=== PATIENT | male | born 1945 | race Caucasian/White ===

== ENCOUNTER 2016-10-14 08:58 | Outpatient (CLI) | payer OTHER ==
[2016-07-22 15:17] VITALS: BMI 32.8
[2016-10-14 09:17] LABS: HEMATOCRIT 42.1 % (42.0-52.0); HEMOGLOBIN 13.1 g/dl (14.0-18.0); MEAN CORPUSCULAR HEMOGLOBIN 27.3 pg (27.0-31.0); MEAN CORPUSCULAR HGB CONC 31.1 (31.8-35.4); MEAN CORPUSCULAR VOLUME 87.9 fl (80.0-94.0); RED BLOOD COUNT 4.79 10^6/ul (4.70-6.10); WHITE BLOOD COUNT 4.93 K/ul (4.2-10.2)
[2016-10-14 09:34] LABS: ANION GAP 11.4; CALCIUM 9.9 mg/dL (8.2-10.2); CREATININE 1.21 mg/dL (0.60-1.10); POTASSIUM 4.4 mmol/L (3.5-5.1)
[2016-10-15 07:19] LABS: URINE CREATININE 72.2 mg/dL (Not Estab.)
[2016-10-15 16:29] LABS: URINE MALB/CR RATIO 302.4 mg/g creat (0.0-30.0)
== END 2016-10-14 08:59 | disposition home or self-care (01) ==
LOC: LAB 08:58
PROVIDERS: ATTEND Internal Medicine Nephrology
DX: N18.2 Chronic kidney disease, stage 2 (mild) (principal)
CPT/HCPCS: 36415; 80048; 82043; 83970; 85025; 85027

== ENCOUNTER 2017-02-03 05:11 | Outpatient (CLI) ==
[2016-07-22 15:17] VITALS: BMI 32.8
== END 2017-02-03 05:12 | disposition home or self-care (01) ==
LOC: AMBL 05:11
PROVIDERS: ATTEND Family Medicine
DX: S09.90XA Unspecified injury of head, initial encounter (principal); S00.81XA Abrasion of other part of head, initial encounter; G47.00 Insomnia, unspecified; W19.XXXA Unspecified fall, initial encounter

== ENCOUNTER 2017-02-13 13:35 | Emergency (ER) | payer OTHER ==
[2017-02-13 13:40] VITALS: BP 135/78; TEMP 98; BMI 35.4
--- NOTE | 2017-02-13 14:42 | ED.PDOC ---
General ED Provider: Dr. CHEVY THOMPSON Chief Complaint: Wound Check Stated Complaint: wound check right lower leg Time Seen by Physician: 13:37 (apolniar at beside at all times pt stated hsi wound is not as bad as before ) Mode of Arrival: Wheelchair Information Source: Patient Exam Limitations: No limitations Primary Care Provider: EULALIO FERRERA Nursing and Triage Documentation Reviewed and Agree: Yes (no skin break down evidence of chrnic venous stasis( chronic)see photos, ) Musculoskeletal Complaint Exam - Lower Extremity Complaint/Exam Location of Pain: Reports: Right, Leg (see photos these channges are all chronic pt said his leg looks better now as before) Onset/Duration: chronic Symptoms Are: Still present Onset of Pain: Reports: Weeks Able to Bear Weight: Yes Associated Signs and Symptoms: Reports: Swelling, Redness. Denies: Bruising, Fever, Weakness, Numbness, Tingling DVT Risk Factors: Reports: Recent bedrest Septic Arthritis Risk Factors: Reports: Extremes of age Related Surgical History: Reports: None Lower Extremity Findings: Present: Swelling (venous stasis chronic changes see photos ) Katelyn's Sign Present: No Review of Systems - Review Of Systems Constitutional: Reports: No symptoms Eyes: Reports: No symptoms Ears, Nose, Mouth, Throat: Reports: No symptoms Respiratory: Reports: No symptoms Cardiac: Reports: No symptoms GI: Reports: No symptoms : Reports: No symptoms Musculoskeletal: Reports: No symptoms Skin: Reports: Rash (RIGHT LOWER LEG) Neurological: Reports: No symptoms Endocrine: Reports: No symptoms Hematologic/Lymphatic: Reports: No symptoms All Other Systems: Reviewed and Negative Past Medical History - Past Medical History Endocrine: Reports: DM 2, Hypothyroid Cardiovascular: Reports: CAD, [place], Hypertension, CHF, A-Fib Respiratory: Reports: COPD, Asthma Hematological: Reports: Anemia Gastrointestinal: Reports: GERD Genitourinary: Reports: CKD Neuro/Psych: Reports: Depression Musculoskeletal: Reports: Back Pain, Joint Pain Cancer: Reports: Unknown - Surgical History General Surgical History: Reports: Appendectomy, Cholecystectomy, Orthopedic (- neck surg--). Denies: CABG (cardiac stents) - Family History Family History: Reports: Unknown - Social History Smoking Status: Current some day smoker Hx Substance Use: No Alcohol Screening: Occasionally Physical Exam - Physical Exam Appearance: Well-appearing, No pain distress, Well-nourished Eyes: EDDIE, EOMI, Conjunctiva clear ENT: Ears normal, Nose normal, Oropharynx normal Respiratory: Airway patent, Breath sounds clear, Breath sounds equal, Respirations nonlabored Cardiovascular: RRR, Pulses normal, No rub, No murmur GI/: Soft, Nontender, No masses, Bowel sounds normal, No Organomegaly Musculoskeletal: Normal strength, ROM intact, No edema, No calf tenderness Skin: Warm, Dry (chronic venous stais changes ) Neurological: Sensation intact, Motor intact, Reflexes intact, Cranial nerves intact, Alert, Oriented Psychiatric: Affect appropriate, Mood appropriate Physician Notification - Case Discussed Physician Notified: PMD Time of Notification: 14:47 (LOWER LEG DISCUSSED ) Critical Care Note - Critical Care Note Total Time (mins): 0 Course - Course Vital Signs: Temp Pulse Resp BP Pulse Ox 02/13/17 13:37 98.0 F 66 20 135/78 92 L Departure - Departure Time of Disposition: 14:46 (nurse present at all times see photos) Disposition: HOME SELF-CARE Discharge Problem: Edema of lower extremity Instructions: Leg Edema (ED), Cellulitis (ED) Condition: Good Pt referred to PMD for follow-up: Yes (spoke to pmd will see pt in office asked me to tell pt to call office [place]) Allergies/Adverse Reactions: Allergies aspirin Adverse Reaction (Verified 02/13/17 13:40) Iodinated Contrast Media - Oral and [Iodinated Contrast Media - IV Dye] Adverse Reaction (Verified 02/13/17 13:40) moxifloxacin Adverse Reaction (Verified 02/13/17 13:40) Home Medications: Ambulatory Orders Atorvastatin Calcium [Lipitor] 80 mg PO DAILY 04/26/13 Gabapentin [Neurontin] 100 mg PO BEDTIME 04/26/13 Levothyroxine Sodium [Synthroid] 350 mcg PO DAILY 04/26/13 Hydrocodone Bit/Acetaminophen [[place] 5-325] 1 - 2 tab PO Q6HR PRN #12 tablet 03/30 Bumetanide [Bumex] 1 - 2 tab PO QDAC 02/13/17 Clopidogrel Bisulfate [Plavix] 75 mg PO DAILY 02/13/17 Colchicine 0.6 mg PO DAILY 02/13/17 Ipratropium/Albuterol Sulfate [Combivent Respimat Inhal [place]] 1 spray IH QID Tamsulosin HCl [Flomax] 0.4 mg PO DAILY 02/13/17
== END 2017-02-13 15:04 | disposition home or self-care (01) ==
LOC: ED 13:35
DX: R60.0 Localized edema (principal); I87.8 Other specified disorders of veins; E11.9 Type 2 diabetes mellitus without complications; F17.210 Nicotine dependence, cigarettes, uncomplicated; Z79.899 Other long term (current) drug therapy
CPT/HCPCS: 99282

== ENCOUNTER 2017-03-13 13:18 | Emergency (ER) ==
[2017-03-13 13:26] VITALS: BP 138/79; TEMP 98.7; BMI 33.7
[2017-03-13 14:06] LABS: BASOPHILS # (AUTO) 0.1 K/uL (0-0.2); BASOPHILS % (AUTO) 1.5 % (0.0-3.0); EOSINOPHILS # (AUTO) 0.3 K/ul (0.0-0.7); EOSINOPHILS % (AUTO) 7.4 % (0.0-7.0); HEMATOCRIT 37.2 % (42.0-52.0); HEMOGLOBIN 11.9 g/dl (14.0-18.0); IMMATURE GRANULOCYTE % (AUTO) 0.3 % (0.0-5.0); LYMPHOCYTES # (AUTO) 0.7 K/uL (0.60-3.4); LYMPHOCYTES % (AUTO) 17.3 (10.0-50.0); MEAN CORPUSCULAR HEMOGLOBIN 29.3 pg (27.0-31.0); MEAN CORPUSCULAR VOLUME 91.6 fl (80.0-94.0); MONOCYTES # (AUTO) 0.4 K/uL (0.4-2.0); MONOCYTES % (AUTO) 9.9 (0-10); NEUTROPHILS # (AUTO) 2.5 K/ul (2.0-6.9); NEUTROPHILS % (AUTO) 63.6; PLATELET COUNT 78 10^3/uL (140-440); RED BLOOD COUNT 4.06 10^6/ul (4.70-6.10); WHITE BLOOD COUNT 3.94 K/ul (4.2-10.2)
[2017-03-13 14:31] LABS: ALBUMIN/GLOBULIN RATIO 0.81; ANION GAP 11.1; BILIRUBIN,TOTAL 0.64 mg/dL (0.00-1.20); BUN/CREATININE RATIO 14.28; CALCIUM 8.8 mg/dL (8.2-10.2); CREATININE 1.26 mg/dL (0.60-1.10); POTASSIUM 4.1 mmol/L (3.5-5.1); TOTAL PROTEIN 6.7 g/dL (5.8-8.1)
--- NOTE | 2017-03-13 14:41 | ED.PDOC ---
General ED Provider: Dr. CHEVY THOMPSON Chief Complaint: Extremity Swelling/Pain Stated Complaint: lower leg pain edema bilateral Time Seen by Physician: 13:20 (see photos) Mode of Arrival: Walk-In Information Source: Patient Exam Limitations: No limitations Primary Care Provider: EULALIO FERRERA Nursing and Triage Documentation Reviewed and Agree: Yes (chronic issue seen with staff) Musculoskeletal Complaint Exam - Lower Extremity Complaint/Exam Location of Pain: Reports: Right, Left, Leg Mechanism of Injury: Reports: No known trauma Onset/Duration: chronic Symptoms Are: Still present Onset of Pain: Reports: Days Initial Severity: Moderate Current Severity: Moderate (please see photos) Location: Reports: Discrete (lower legs ) Character: Reports: Aching Alleviating: Reports: Rest, Position Aggravating: Reports: Movement Able to Bear Weight: Yes Associated Signs and Symptoms: Reports: Swelling Related History: Reports: Similar episode DVT Risk Factors: Reports: Recent bedrest Septic Arthritis Risk Factors: Reports: Extremes of age Related Surgical History: Reports: None Katelyn's Sign Present: No Differential Diagnoses: Arthritis, Strain, Sprain, Other (cellulitis) Review of Systems - Review Of Systems Constitutional: Reports: No symptoms Eyes: Reports: No symptoms Ears, Nose, Mouth, Throat: Reports: No symptoms Respiratory: Reports: No symptoms Cardiac: Reports: No symptoms GI: Reports: No symptoms : Reports: No symptoms Musculoskeletal: Reports: Other (leg pains see photos) Skin: Reports: No symptoms Neurological: Reports: No symptoms Endocrine: Reports: No symptoms Hematologic/Lymphatic: Reports: No symptoms All Other Systems: Reviewed and Negative Past Medical History - Past Medical History Endocrine: Reports: DM 2, Hypothyroid Cardiovascular: Reports: CAD, [place], Hypertension, CHF, A-Fib Respiratory: Reports: COPD, Asthma Hematological: Reports: Anemia Gastrointestinal: Reports: GERD Genitourinary: Reports: CKD Neuro/Psych: Reports: Depression Musculoskeletal: Reports: Back Pain, Joint Pain Cancer: Reports: Unknown - Surgical History General Surgical History: Reports: Appendectomy, Cholecystectomy, Orthopedic (- neck surg--). Denies: CABG (cardiac stents) - Family History Family History: Reports: Unknown - Social History Smoking Status: Current every day smoker, Light tobacco smoker Hx Substance Use: No Alcohol Screening: Occasionally Physical Exam - Physical Exam Appearance: Well-appearing, No pain distress, Well-nourished Eyes: EDDIE, EOMI, Conjunctiva clear ENT: Ears normal, Nose normal, Oropharynx normal Respiratory: Airway patent, Breath sounds clear, Breath sounds equal, Respirations nonlabored Cardiovascular: RRR, Pulses normal, No rub, No murmur GI/: Soft, Nontender, No masses, Bowel sounds normal, No Organomegaly Musculoskeletal: Limited ROM, Edema (2 plus ) Skin: Warm, Dry (cellulitic eveidence of chronic venous stasis see photos ) Neurological: Sensation intact, Motor intact, Reflexes intact, Cranial nerves intact, Alert, Oriented Psychiatric: Affect appropriate, Mood appropriate Critical Care Note - Critical Care Note Total Time (mins): 0 Course - Course Hematology/Chemistry: 03/13/17 13:50 03/13/17 13:50 Orders, Labs, Meds: Lab Review 03/13/17 13:50 WBC 3.94 L RBC 4.06 L Hgb 11.9 L Hct 37.2 L MCV 91.6 MCH 29.3 MCHC 32.0 RDW Coeff of Alen 15.6 H Plt Count 78 L Immature Gran % (Auto) 0.3 Neut % (Auto) 63.6 Lymph % (Auto) 17.3 [place] % (Auto) 9.9 Eos % (Auto) 7.4 H Baso % (Auto) 1.5 Immature Gran # (Auto) 0.0 Neut # 2.5 Lymph # 0.7 [place] # 0.4 Eos # 0.3 Baso # 0.1 Sodium 140 Potassium 4.1 Chloride 103 Carbon Dioxide 30 Anion Gap 11.1 BUN 18 Creatinine 1.26 H Estimated GFR (MDRD) 57.00 BUN/Creatinine Ratio 14.28 Glucose 97 Calcium 8.8 Total Bilirubin 0.64 AST 35 ALT 48 Alkaline Phosphatase 107 Total Protein 6.7 Albumin 3.0 L Globulin 3.7 Albumin/Globulin Ratio 0.81 Orders Category Date Time Status EKG-(ED ONLY) Stat CARDIO 03/13/17 13:48 Completed CBC W/ AUTO DIFF Stat LAB 03/13/17 13:50 Completed COMPREHENSIVE METABOLIC PANEL Stat LAB 03/13/17 13:50 Completed U/S VENOUS SCAN LEON LEGS Stat RADS 03/13/17 13:52 Completed Vital Signs: Temp Pulse Resp BP Pulse Ox 03/13/17 13:18 98.7 F 63 20 138/79 92 L Departure - Departure Time of Disposition: 15:30 (with may in the room i explained labs and ultra sound requested pt to see PMD WING) Disposition: HOME SELF-CARE Discharge Problem: Bilateral lower leg cellulitis Instructions: Cellulitis (ED) Condition: Good Pt referred to PMD for follow-up: No Additional Instructions: Please call your Family Physician as soon as possible to schedule a follow-up appointment. Allergies/Adverse Reactions: Allergies aspirin Adverse Reaction (Verified 03/13/17 13:27) Iodinated Contrast- Oral and IV Dye [Iodinated Contrast Media - IV Dye] Adverse Reaction (Verified 03/13/17 13:27) moxifloxacin Adverse Reaction (Verified 03/13/17 13:27) Home Medications: Ambulatory Orders Atorvastatin Calcium [Lipitor] 80 mg PO DAILY 04/26/13 Gabapentin [Neurontin] 100 mg PO BEDTIME 04/26/13 Levothyroxine Sodium [Synthroid] 350 mcg PO DAILY 04/26/13 Hydrocodone Bit/Acetaminophen [[place] 5-325] 1 - 2 tab PO Q6HR PRN #12 tablet 03/30 Bumetanide [Bumex] 1 - 2 tab PO QDAC 02/13/17 Clopidogrel Bisulfate [Plavix] 75 mg PO DAILY 02/13/17 Colchicine 0.6 mg PO DAILY 02/13/17 Ipratropium/Albuterol Sulfate [Combivent Respimat Inhal [place]] 1 spray IH QID Tamsulosin HCl [Flomax] 0.4 mg PO DAILY 02/13/17 Clindamycin HCl 300 mg PO TID 03/13/17 Disposition Discussed With: Patient
--- NOTE | 2017-03-13 15:03 | US ---
EXAM: Ultrasound venous Doppler right and left lower extermity HISTORY: Pain, tenderness, swelling, red thick skin COMPARISON: 08/07/2011 TECHNIQUE: Venous duplex ultrasound of the right and left lower extremity was performed using color , cyr-scale, and Doppler flow imaging. FINDINGS: There is normal color flow and compression of the right and left common femoral, greater saphenous, profunda femoral, femoral, popliteal, peroneal, and (left) posterior tibial veins without evidence of intraluminal thrombus. Right posterior tibial veins and left anterior tibial veins not visualized. Bilateral subcutaneous edema. IMPRESSION: No right or left lower extremity deep venous thrombosis at the visualized levels.
== END 2017-03-13 15:51 | disposition home or self-care (01) ==
LOC: ED 13:18
DX: L03.116 Cellulitis of left lower limb (principal); L03.115 Cellulitis of right lower limb; M79.605 Pain in left leg; M79.604 Pain in right leg; E11.9 Type 2 diabetes mellitus without complications; E03.9 Hypothyroidism, unspecified; I25.10 Atherosclerotic heart disease of native coronary artery without angina pectoris; I13.0 Hypertensive heart and chronic kidney disease with heart failure and stage 1 through stage 4 chronic kidney disease, or unspecified chronic kidney disease; E11.22 Type 2 diabetes mellitus with diabetic chronic kidney disease; N18.9 Chronic kidney disease, unspecified; I50.9 Heart failure, unspecified; D63.1 Anemia in chronic kidney disease; I25.2 Old myocardial infarction; F17.210 Nicotine dependence, cigarettes, uncomplicated; Z79.899 Other long term (current) drug therapy
CPT/HCPCS: 36415; 80053; 85025; 93005; 93010; 99283

== ENCOUNTER 2017-04-08 13:26 | Outpatient (CLI) | END 2017-04-08 13:27 | LOC: AMBL 13:26 | PROVIDERS: ATTEND Internal Medicine | DX: R50.9 Fever, unspecified (principal); I10 Essential (primary) hypertension; R00.0 Tachycardia, unspecified; R06.2 Wheezing ==

== ENCOUNTER 2017-05-13 16:04 | Emergency (ER) | payer OTHER ==
[2017-05-13 16:05] VITALS: BMI 33.7
[2017-05-13 16:11] VITALS: BP 109/71; TEMP 99.4
--- NOTE | 2017-05-13 16:20 | ED.PDOC ---
General ED Provider: Dr. KOFI XAVIER JR Chief Complaint: Hip Pain/Injury Stated Complaint: Pain rt hip/ lateral rt thigh. Fell while getting out of chair. Tripped over the cat et fell into TV. Able to stand, but with pain. Took Ibuprofen at 1330. [ End ] 99.4 69 20 94 109/71 6/10. htn dm thy anem chol mi chf afib copd asth gerd kd depr anx arth cad. cardiac stents Time Seen by Physician: 16:15 Mode of Arrival: Wheelchair Information Source: Patient Exam Limitations: No limitations Nursing and Triage Documentation Reviewed and Agree: No Review of Systems - Review Of Systems Constitutional: Reports: Malaise, Weakness Eyes: Reports: No symptoms Ears, Nose, Mouth, Throat: Reports: No symptoms Respiratory: Reports: No symptoms Cardiac: Reports: Edema, Lightheadedness GI: Reports: No symptoms : Reports: No symptoms Musculoskeletal: Reports: Joint pain, Muscle pain Skin: Reports: Lesions (bilateral leg swelling with open lesions left >right) Neurological: Reports: No symptoms Endocrine: Reports: No symptoms Hematologic/Lymphatic: Reports: No symptoms All Other Systems: Other Past Medical History - Past Medical History Endocrine: Reports: DM 2, Hypothyroid, Dyslipidemia Cardiovascular: Reports: CAD, [place], Hypertension, CHF, A-Fib Respiratory: Reports: COPD, Asthma Hematological: Reports: Anemia Gastrointestinal: Reports: GERD Genitourinary: Reports: CKD Neuro/Psych: Reports: Anxiety, Depression Musculoskeletal: Reports: Arthritis, Back Pain, Joint Pain Cancer: Reports: Unknown - Surgical History General Surgical History: Reports: Appendectomy, Cholecystectomy, Stent, Orthopedic (-neck surg--). Denies: CABG (cardiac stents) - Family History Family History: Reports: Unknown - Social History Smoking Status: Current every day smoker, Light tobacco smoker Hx Substance Use: No Alcohol Screening: Occasionally Physical Exam - Physical Exam Appearance: Ill-appearing Pain Distress: Moderate Neck: Supple Respiratory: Airway patent Musculoskeletal: ROM intact, No calf tenderness, Edema Skin: Warm Neurological: Alert, Oriented Psychiatric: Affect appropriate Critical Care Note - Critical Care Note Total Time (mins): 0 Course - Course Orders, Labs, Meds: Orders Category Date Time Status FEMUR, RIGHT 2 VIEWS Stat RADS 05/13/17 16:17 Completed Vital Signs: Temp Pulse Resp BP Pulse Ox 05/13/17 16:06 99.4 F 69 20 109/71 94 L Departure - Departure Time of Disposition: 17:32 Disposition: HOME SELF-CARE Discharge Problem: Hip pain, Contusion Instructions: Hip Contusion (ED) Condition: Good Pt referred to PMD for follow-up: Yes Allergies/Adverse Reactions: Allergies aspirin Adverse Reaction (Verified 03/13/17 13:27) Iodinated Contrast- Oral and IV Dye [Iodinated Contrast Media - IV Dye] Adverse Reaction (Verified 03/13/17 13:27) moxifloxacin Adverse Reaction (Verified 03/13/17 13:27) Home Medications: Ambulatory Orders Atorvastatin Calcium [Lipitor] 80 mg PO DAILY 04/26/13 Gabapentin [Neurontin] 100 mg PO BID 04/26/13 Levothyroxine Sodium [Synthroid] 350 mcg PO DAILY 04/26/13 Hydrocodone Bit/Acetaminophen [[place] 5-325] 1 - 2 tab PO Q6HR PRN #12 tablet 03/30 Bumetanide [Bumex] 1 tab PO QDAC 02/13/17 Clopidogrel Bisulfate [Plavix] 75 mg PO DAILY 02/13/17 Colchicine 0.6 mg PO DAILY 02/13/17 Ipratropium/Albuterol Sulfate [Combivent Respimat Inhal [place]] 1 spray IH QID Tamsulosin HCl [Flomax] 0.4 mg PO DAILY 02/13/17 Bumetanide 0.5 mg PO BEDTIME 05/13/17
--- NOTE | 2017-05-13 17:02 | DI ---
EXAM: RIGHT FEMUR, 2 VIEWS HISTORY: Fall, femoral, pain. FINDINGS: Some comparison is made to right knee dated 04/12/2013. Redemonstration of of bony fragm ent of the superior patella which is consistent with a chronic avulsion fracture fragment versus calcific tendinosis. There is no acute fracture. No joint effusion. A few vascular calcific ations are present. IMPRESSION: No acute fracture.
[2017-05-13] MEDS ORDERED: DEMEROL 50 MG/ML SYRINGE IM STA (17:46)
[2017-05-13] MEDS ORDERED: ZOFRAN 4 MG/2 ML IM STA (17:46)
== END 2017-05-13 18:03 | disposition home or self-care (01) ==
LOC: ED 16:04
DX: M25.551 Pain in right hip (principal); S70.01XA Contusion of right hip, initial encounter; W01.0XXA Fall on same level from slipping, tripping and stumbling without subsequent striking against object, initial encounter; F17.210 Nicotine dependence, cigarettes, uncomplicated
CPT/HCPCS: 99283

== ENCOUNTER 2017-08-22 15:00 | Outpatient (CLI) | END 2017-08-22 15:01 | disposition short-term general hospital (02) | LOC: AMBL 15:00 | PROVIDERS: ATTEND Internal Medicine | DX: R06.02 Shortness of breath (principal); R06.2 Wheezing; R05 Cough; R60.0 Localized edema; J44.9 Chronic obstructive pulmonary disease, unspecified; I50.9 Heart failure, unspecified; I48.91 Unspecified atrial fibrillation ==

== ENCOUNTER 2017-10-15 16:17 | Outpatient (CLI) | payer OTHER ==
--- NOTE | 2017-10-16 08:33 | DI ---
EXAM: Two views of the chest. History: Congestive heart failure. Comparison: Chest radiograph 04/26/2013 Findings: Heart size is upper limits of normal. Bilateral interstitial lung infiltrates. No pleura l fluid and no pneumothorax. No acute osseous abnormalities. Postsurgical changes of the cervical s pine. Impression: Bilateral interstitial lung infiltrates could represent edema or pneumonia.
== END 2017-10-15 16:18 | disposition home or self-care (01) ==
LOC: LAB 16:17
PROVIDERS: ATTEND Family Medicine
DX: I25.118 Atherosclerotic heart disease of native coronary artery with other forms of angina pectoris (principal); I50.22 Chronic systolic (congestive) heart failure; R06.02 Shortness of breath; R60.9 Edema, unspecified; E03.9 Hypothyroidism, unspecified; I48.2 Chronic atrial fibrillation; E11.9 Type 2 diabetes mellitus without complications
CPT/HCPCS: 36415; 80053; 83036; 83880; 84436; 84443; 84479; 85025

== ENCOUNTER 2018-04-01 07:50 | Outpatient (CLI) | payer OTHER | END 2018-04-01 07:51 | disposition home or self-care (01) | LOC: WOUND 07:50 | PROVIDERS: ATTEND Nurse Practitioner Family | DX: E11.622 Type 2 diabetes mellitus with other skin ulcer (principal); I25.10 Atherosclerotic heart disease of native coronary artery without angina pectoris; I10 Essential (primary) hypertension | CPT/HCPCS: 99202 ==

== ENCOUNTER 2018-04-08 10:01 | Outpatient (CLI) | payer OTHER | END 2018-04-08 10:02 | disposition home or self-care (01) | LOC: WOUND 10:01 | PROVIDERS: ATTEND Nurse Practitioner Family | DX: I87.313 Chronic venous hypertension (idiopathic) with ulcer of bilateral lower extremity (principal); L97.222 Non-pressure chronic ulcer of left calf with fat layer exposed; L97.312 Non-pressure chronic ulcer of right ankle with fat layer exposed; L97.822 Non-pressure chronic ulcer of other part of left lower leg with fat layer exposed; I10 Essential (primary) hypertension; I25.10 Atherosclerotic heart disease of native coronary artery without angina pectoris | CPT/HCPCS: 99212; 99213 ==

== ENCOUNTER 2018-04-15 09:57 | Outpatient (CLI) | END 2018-04-15 09:58 | disposition home or self-care (01) | LOC: WOUND 09:57 | PROVIDERS: ATTEND Nurse Practitioner Family | DX: I87.313 Chronic venous hypertension (idiopathic) with ulcer of bilateral lower extremity (principal); L97.222 Non-pressure chronic ulcer of left calf with fat layer exposed; L97.312 Non-pressure chronic ulcer of right ankle with fat layer exposed; L97.822 Non-pressure chronic ulcer of other part of left lower leg with fat layer exposed; I10 Essential (primary) hypertension; I25.10 Atherosclerotic heart disease of native coronary artery without angina pectoris; L97.321 Non-pressure chronic ulcer of left ankle limited to breakdown of skin; L97.811 Non-pressure chronic ulcer of other part of right lower leg limited to breakdown of skin | CPT/HCPCS: 99212; 99213 ==

== ENCOUNTER 2018-04-22 11:03 | Outpatient (CLI) | payer OTHER | END 2018-04-22 11:04 | disposition home or self-care (01) | LOC: WOUND 11:03 | PROVIDERS: ATTEND Nurse Practitioner Family | DX: I87.313 Chronic venous hypertension (idiopathic) with ulcer of bilateral lower extremity (principal); L97.222 Non-pressure chronic ulcer of left calf with fat layer exposed; L97.822 Non-pressure chronic ulcer of other part of left lower leg with fat layer exposed; L97.811 Non-pressure chronic ulcer of other part of right lower leg limited to breakdown of skin; I10 Essential (primary) hypertension; I25.10 Atherosclerotic heart disease of native coronary artery without angina pectoris ==

== ENCOUNTER 2018-04-29 09:37 | Outpatient (CLI) | payer OTHER | END 2018-04-29 09:38 | disposition home or self-care (01) | LOC: WOUND 09:37 | PROVIDERS: ATTEND Nurse Practitioner Family | DX: I87.313 Chronic venous hypertension (idiopathic) with ulcer of bilateral lower extremity (principal); L97.222 Non-pressure chronic ulcer of left calf with fat layer exposed; L97.822 Non-pressure chronic ulcer of other part of left lower leg with fat layer exposed; L97.811 Non-pressure chronic ulcer of other part of right lower leg limited to breakdown of skin; I10 Essential (primary) hypertension; I25.10 Atherosclerotic heart disease of native coronary artery without angina pectoris ==

== ENCOUNTER 2018-05-13 09:53 | Outpatient (CLI) | END 2018-05-13 09:54 | disposition home or self-care (01) | LOC: WOUND 09:53 | PROVIDERS: ATTEND Nurse Practitioner Family | DX: I87.313 Chronic venous hypertension (idiopathic) with ulcer of bilateral lower extremity (principal); L97.222 Non-pressure chronic ulcer of left calf with fat layer exposed; L97.822 Non-pressure chronic ulcer of other part of left lower leg with fat layer exposed; I10 Essential (primary) hypertension; I25.10 Atherosclerotic heart disease of native coronary artery without angina pectoris ==

== ENCOUNTER 2018-05-17 11:39 | Inpatient (IN) ==
[2018-05-17] MEDS ORDERED: SODIUM CHLORIDE 500 ML IV STA (11:55)
--- NOTE | 2018-05-17 12:22 | CT ---
EXAM: CT of the head without contrast History: Head trauma. Technique: Multiplanar CT images through the head were obtained without the administration of IV con trast Findings: The visualized paranasal sinuses and mastoid air cells are clear in general. No acute miguel varial abnormalities. Partially visualized postsurgical changes of the cervical spine. Intracranially the ventricular and cisternal spaces are normal in size, shape and configuration for a patient of this age. No dominant mass or midline shift. No hydrocephalous. No acute intracranial hemorrhage or abnormal extraaxial fluid collections. Impression: No acute intracranial process
[2018-05-17] MEDS ORDERED: VANCOMYCIN 1 GM in SODIUM CHLORIDE 250 ML IV STA (12:34)
[2018-05-17] MEDS ORDERED: SODIUM CHLORIDE 1,000 ML IV STA (12:39)
--- NOTE | 2018-05-17 12:39 | CT ---
EXAM: CT of the cervical spine without contrast History: Head and neck trauma. Technique: Multiplanar CT images through the cervical spine were obtained without the administration of IV contrast Findings: Ground-glass infiltrates seen within the visualized upper lungs. Atherosclerotic vascular calcifications. No acute fracture or subluxation of the cervical spine. Grossly intact spinal fusio n hardware. Vertebral body at C4 is not well seen and is most likely postsurgical in nature. bony spi nal canal is not significantly compromised. Multilevel bilateral bony neural foraminal narrowing sec ondary to uncovertebral and facet hypertrophy. Impression: No acute osseous abnormality of the cervical spine. Grossly intact hardware.
--- NOTE | 2018-05-17 12:44 | CT ---
EXAM: CT of the chest without contrast History: Chest trauma, unresponsive Comparison: CT abdomen pelvis 05/17/2018, chest radiograph 10/15/2017 Technique: Multiplanar CT images through the thorax were obtained without the administration of IV c ontrast Findings: Heart is enlarged. Coronary calcifications. No thoracic aortic aneurysm. No axillary ly mphadenopathy. A few borderline enlarged mediastinal lymph nodes. Evaluation for hilar lymph nodes is limited due to the lack of contrast administration. There is interlobular septal thickening and b ilateral ground-glass infiltrates. More focal bibasilar consolidation. No pneumothorax. No suspici ous lung masses or lung nodules. For details in the upper abdomen, please see dedicated CT abdomen pelvis done on the same day. Posts urgical changes of the cervical spine. No acute osseous abnormalities. A few subacute right-sided r ib fractures with callous formation involving the right lateral eighth and ninth ribs. Motion artifa ct through the sternum and ribs limits evaluation for acute fractures. Impression: 1. Cardiomegaly with interstitial pulmonary edema. 2. Bibasilar pneumonia. 3. Coronary artery disease
--- NOTE | 2018-05-17 12:47 | CT ---
EXAM: CT of the abdomen pelvis without contrast History: Abdominal and pelvic trauma. Comparison: Chest CT 05/17/2018 Technique: Multiplanar CT images through the abdomen pelvis were obtained without the administration of IV contrast Findings: Motion artifact limits evaluation. Bibasilar lung infiltrates. Evaluation for fracture is limited due to the motion artifact but no obvious fractures are identified. Degenerative changes of the spine. Bilateral gynecomastia. Status post cholecystectomy. No focal liver or splenic lesions. No renal stones and no hydronephros is. A few mildly air distended loops of small bowel seen within the anterior central abdomen. Scatter ed colonic stool. Catheter seen within the bladder. Atherosclerotic vascular calcifications. There is some atrophy of the pancreas but no olga peripancreatic inflammation. Adrenal glands are unrema rkable. Impression: 1. Mildly distended loops of small bowel within the anterior abdomen probably related to ileus or en teritis. Early developing partial small bowel obstruction is not excluded and recommend followup wit h abdominal plain film in 24 hours. 2. Dietrich catheter within the bladder. 3. Bibasilar pneumonia.
[2018-05-17] MEDS ORDERED: D5%-NS-KCL 20 MEQ/L IV SOL 1,000 ML IV STA (13:47)
[2018-05-17] MEDS ORDERED: POTASSIUM CHLORIDE 20 MEQ VIAL IV ONE (13:53)
--- NOTE | 2018-05-17 13:56 | ED.PDOC ---
General ED Provider: Dr. YOMI PRATER-ER Chief Complaint: Altered Mental Status Stated Complaint: brought in by ems for change in mental status Time Seen by Physician: 11:45 Mode of Arrival: Ambulance Information Source: EMT Exam Limitations: No limitations Primary Care Provider: EULALIO FERRERA Nursing and Triage Documentation Reviewed and Agree: Yes Does patient meet sepsis criteria?: Yes If yes, has appropriate treatment been initiated?: Yes System Inflammatory Response Syndrome: Temp 96.8F or Lower, Acutely Altered Mental Status Sepsis Protocol: For patient's 13 years and over: Temp is 96.8 and below OR 101 and greater Pulse >90 BPM Resp >20/minute Acutely Altered Mental Status Are patient's symptoms suggestive of a new infection, such as: -Pneumonia -Skin, Soft Tissue -Endocarditis -UTI -Bone, Joint Infection -Implantable Device -Acute Abdominal Infection -Wound Infection -Meningitis -Blood Stream Catheter Infection -Unknown Neurological Complaint Exam - Altered Mental Status Complaint/Exam Current Mental Status: Unresponsiveness Last Known Well: unknown Onset: Gradual Symptoms Are: Still present Timing: Constant Initial Severity: Mild Current Severity: Severe Eye Deviation Present: No Character: Reports: Responsiveness, Lethargy Aggravating: Reports: Unknown Alleviating: Reports: None Associated Signs and Symptoms: Reports: Weakness Related History: Reports: Similar episode Related Surgical History: Reports: None Carotid Bruit Present: No Meningeal Signs Positive: No Focal Weakness: Present: None Focal Sensory Loss: Present: None Differential Diagnoses: Sepsis Review of Systems - Review Of Systems Constitutional: Reports: Malaise, Weakness, Loss of appetite Eyes: Reports: No symptoms Ears, Nose, Mouth, Throat: Reports: No symptoms Respiratory: Reports: No symptoms Cardiac: Reports: No symptoms GI: Reports: No symptoms : Reports: No symptoms Musculoskeletal: Reports: No symptoms Skin: Reports: No symptoms Neurological: Reports: Cognitive dysfunction, Weakness Endocrine: Reports: No symptoms Hematologic/Lymphatic: Reports: No symptoms All Other Systems: Reviewed and Negative Past Medical History - Past Medical History Previously Healthy: No Endocrine: Reports: DM 2, Hypothyroid, Dyslipidemia Cardiovascular: Reports: CAD, [place], Hypertension, CHF, A-Fib Respiratory: Reports: COPD, Asthma Hematological: Reports: Anemia Gastrointestinal: Reports: GERD Genitourinary: Reports: CKD Neuro/Psych: Reports: Anxiety, Depression Musculoskeletal: Reports: Arthritis, Back Pain, Joint Pain Cancer: Reports: Unknown - Surgical History General Surgical History: Reports: Appendectomy, Cholecystectomy, Stent, Orthopedic (-neck surg--). Denies: CABG (cardiac stents) - Family History Family History: Reports: Unknown - Social History Smoking Status: Current every day smoker, Light tobacco smoker Hx Substance Use: No Alcohol Screening: Occasionally Lives: Alone - Immunizations Tetanus Shot up to Date: No Physical Exam - Physical Exam Appearance: Ill-appearing Ill-appearing: Moderate Eyes: EDDIE, EOMI, Conjunctiva clear ENT: Ears normal, Nose normal, Oropharynx normal Neck: Supple Respiratory: Airway patent Cardiovascular: RRR, Pulses normal, No rub, No murmur GI/: Soft, Nontender, No masses, Bowel sounds normal, No Organomegaly Musculoskeletal: Normal strength, ROM intact, No edema, No calf tenderness Skin: Warm, Dry, Normal color Neurological: Sensation intact, Motor intact, Reflexes intact, Cranial nerves intact, Disoriented Psychiatric: Affect appropriate Interpretation - Radiology Interpretation Radiology Interpretation By: Radiologist Radiology Results: Positive Exam Interpreted: CT Scan - EKG Interpretation Time of EKG #1: 13:57 Rate: Normal Rhythm: Sinus Ectopy: None [place]: NL ST Segment: Normal Re-Evaluation - Re-Evaluation Time of Re-Evaluation: 13:57 Status: Improved Vital Signs Stable: Yes Pain Level: 0 Appearance: NAD Lungs: Clear Skin: Warm and Dry CV: RRR Physician Notification - Case Discussed Physician Notified: dr alcala Time of Notification: 13:58 Critical Care Note - Critical Care Note Total Time (mins): 45 Course - Course Hematology/Chemistry: 05/17/18 11:52 05/17/18 11:52 Orders, Labs, Meds: Lab Review 05/17/18 05/17/18 05/17/18 11:41 11:52 11:52 WBC 25.43 H RBC 4.50 L Hgb 13.1 L Hct 39.2 L MCV 87.1 MCH 29.1 MCHC 33.4 RDW Coeff of Alen 15.8 H Plt Count 169 Immature Gran % (Auto) 1.3 Neut % (Auto) 84.9 Lymph % (Auto) 9.8 L Dickinson % (Auto) 3.7 Eos % (Auto) 0.1 Baso % (Auto) 0.2 Immature Gran # (Auto) 0.3 Neut # (Auto) 21.6 H Lymph # (Auto) 2.5 Dickinson # (Auto) 0.9 Eos # (Auto) 0.0 Baso # (Auto) 0.1 Puncture Site Lrad O2 Saturation 90.0 L ABG pH 7.124 L* ABG pCO2 71.9 H ABG pO2 81.0 L ABG HCO3 23.6 ABG Total CO2 26 ABG Base Excess -6 L Mann Test + O2 Delivery Device Nrb Oxygen Liter Flow 15.00 FiO2 % 100.0 Sodium 132 L Potassium 2.9 L Chloride 94 L Carbon Dioxide 25 Anion Gap 15.9 BUN 17 Creatinine 1.30 H Estimated GFR (MDRD) 54.00 BUN/Creatinine Ratio 13.07 Glucose 134 H Lactic Acid Calcium 9.0 Total Bilirubin 2.9 H AST 91 H ALT 31 Alkaline Phosphatase 90 Total Creatine Kinase 1025 CK-MB (CK-2) 26.4 H* CK-MB (CK-2) % 2.02894 Troponin I < 0.0100 Total Protein 7.0 Albumin 2.5 L Globulin 4.5 Albumin/Globulin Ratio 0.56 Procalcitonin Urine Color Urine Clarity Urine pH Ur Specific [place] Urine Protein Urine Glucose (UA) Urine Ketones Urine Blood Urine Nitrite Urine Bilirubin Urine Urobilinogen Ur Leukocyte Esterase Urine Microscopic RBC Ur Squamous Epith Cells Urine Opiates Screen Ur Oxycodone Screen Urine Methadone Screen Ur Propoxyphene Screen Ur Barbiturates Screen U Tricyclic Antidepress Ur Phencyclidine Scrn Ur Amphetamine Screen U Methamphetamines Scrn U Benzodiazepines Scrn Urine Cocaine Screen U Cannabinoids Screen Plasma/Serum Alcohol < 10.0 05/17/18 05/17/18 05/17/18 11:52 11:52 12:02 WBC RBC Hgb Hct MCV MCH MCHC RDW Coeff of Alen Plt Count Immature Gran % (Auto) Neut % (Auto) Lymph % (Auto) Dickinson % (Auto) Eos % (Auto) Baso % (Auto) Immature Gran # (Auto) Neut # (Auto) Lymph # (Auto) Dickinson # (Auto) Eos # (Auto) Baso # (Auto) Puncture Site O2 Saturation ABG pH ABG pCO2 ABG pO2 ABG HCO3 ABG Total CO2 ABG Base Excess Mann Test O2 Delivery Device Oxygen Liter Flow FiO2 % Sodium Potassium Chloride Carbon Dioxide Anion Gap BUN Creatinine Estimated GFR (MDRD) BUN/Creatinine Ratio Glucose Lactic Acid 39.7 H Calcium Total Bilirubin AST ALT Alkaline Phosphatase Total Creatine Kinase CK-MB (CK-2) CK-MB (CK-2) % Troponin I Total Protein Albumin Globulin Albumin/Globulin Ratio Procalcitonin 4.16 Urine Color Yellow Urine Clarity Clear Urine pH 6.0 Ur Specific [place] 1.020 Urine Protein 1+ Urine Glucose (UA) Trace Urine Ketones 1+ Urine Blood 1+ Urine Nitrite Negative Urine Bilirubin 1+ Urine Urobilinogen 0.2 Ur Leukocyte Esterase Negative Urine Microscopic RBC 0-2 Ur Squamous Epith Cells Not present Urine Opiates Screen Ur Oxycodone Screen Urine Methadone Screen Ur Propoxyphene Screen Ur Barbiturates Screen U Tricyclic Antidepress Ur Phencyclidine Scrn Ur Amphetamine Screen U Methamphetamines Scrn U Benzodiazepines Scrn Urine Cocaine Screen U Cannabinoids Screen Plasma/Serum Alcohol 05/17/18 05/17/18 12:02 12:45 WBC RBC Hgb Hct MCV MCH MCHC RDW Coeff of Alen Plt Count Immature Gran % (Auto) Neut % (Auto) Lymph % (Auto) Dickinson % (Auto) Eos % (Auto) Baso % (Auto) Immature Gran # (Auto) Neut # (Auto) Lymph # (Auto) Dickinson # (Auto) Eos # (Auto) Baso # (Auto) Puncture Site Lrad O2 Saturation 94.0 L ABG pH 7.277 L* ABG pCO2 48.7 H ABG pO2 79.0 L ABG HCO3 22.8 ABG Total CO2 24 ABG Base Excess -4 L Mann Test + O2 Delivery Device Bipap Oxygen Liter Flow FiO2 % 50.0 Sodium Potassium Chloride Carbon Dioxide Anion Gap BUN Creatinine Estimated GFR (MDRD) BUN/Creatinine Ratio Glucose Lactic Acid Calcium Total Bilirubin AST ALT Alkaline Phosphatase Total Creatine Kinase CK-MB (CK-2) CK-MB (CK-2) % Troponin I Total Protein Albumin Globulin Albumin/Globulin Ratio Procalcitonin Urine Color Urine Clarity Urine pH Ur Specific [place] Urine Protein Urine Glucose (UA) Urine Ketones Urine Blood Urine Nitrite Urine Bilirubin Urine Urobilinogen Ur Leukocyte Esterase Urine Microscopic RBC Ur Squamous Epith Cells Urine Opiates Screen Negative Ur Oxycodone Screen Negative Urine Methadone Screen Negative Ur Propoxyphene Screen Negative Ur Barbiturates Screen Negative U Tricyclic Antidepress Negative Ur Phencyclidine Scrn Negative Ur Amphetamine Screen Negative U Methamphetamines Scrn Negative U Benzodiazepines Scrn Negative Urine Cocaine Screen Negative U Cannabinoids Screen Negative Plasma/Serum Alcohol Orders Category Date Time Status ABG DRAW REQUEST Stat CARDIO 05/17/18 11:41 Completed BIPAP Routine CARDIO 05/17/18 11:42 Ordered EKG-(ED ONLY) Stat CARDIO 05/17/18 11:41 Completed Jewelry Facer [ED BRIDGE INSTRUCTOR APPLIED] .ONCE EMERGENCY 05/17/18 11:44 Active IV [ED IV/MEDIPORT/POWERPORT] .ONCE EMERGENCY 05/17/18 11:45 Active ABG Stat LAB 05/17/18 11:41 Completed ARTERIAL BLOOD GAS [ABG] Timed LAB 05/17/18 12:45 Completed BLOOD ALCOHOL Stat LAB 05/17/18 11:52 Completed BLOOD CULTURE (ED ONLY) Stat LAB 05/17/18 11:52 Received CBC W/ AUTO DIFF Stat LAB 05/17/18 11:52 Completed CK [CREATINE KINASE] Stat LAB 05/17/18 11:52 Completed COMPREHENSIVE METABOLIC PANEL Stat LAB 05/17/18 11:52 Completed LACTIC ACID Stat LAB 05/17/18 11:52 Completed PROCALCITONIN Stat LAB 05/17/18 11:52 Completed TROPONIN I Stat LAB 05/17/18 11:52 Completed URINALYSIS C & S IF INDICATED Stat LAB 05/17/18 12:02 Completed URINE CULTURE Stat LAB 05/17/18 12:02 Received URINE DRUG SCREEN (RAPID FOR ED) [DRUG SCREEN, URINE, LAB 05/17/18 12:02 Completed RAPID] Stat 0.9 % Sodium Chloride [Saline Flush] MEDS 05/17/18 11:45 Active 1 syr IVF PRN PRN Potassium Chloride/D5-0.9%NaCl [D5%-Ns-KCl 20 Meq/l IV MEDS 05/17/18 13:47 Active Randi] 1,000 ml IV 100 mls/hr Sodium Chloride 0.9% [Sodium Chloride] 1,000 ml MEDS 05/17/18 12:39 Discontinued IV BOLUS Vancomycin HCl [Vancomycin] 1 gm MEDS 05/17/18 12:34 Discontinued 0.9 % Sodium Chloride [Sodium Chloride] [address] ABDOMEN/PELVIS WO CONTRAST Stat RADS 05/17/18 11:[address] CERVICAL SPINE W/O CONTRAST Stat RADS 05/17/18 11:[address] CHEST W/O CONTRAST Stat RADS 05/17/18 11:[address] HEAD W/O CONTRAST Stat RADS 05/17/18 11:43 Completed Medications Generic Name Dose Route Start Last Admin Trade Name Laila PRN Reason Stop Dose Admin Potassium Chloride/Dextrose/Sod Cl 1,000 mls @ 100 mls/hr 05/17/18 13:47 D5%-Ns-Kcl 20 Meq/L Iv Randi IV 05/17/18 23:46 .Q10H STA Sodium Chloride 1 syr 05/17/18 11:45 Saline Flush IVF PRN PRN To flush IV Discontinued Medications Generic Name Dose Route Start Last Admin Trade Name Freq PRN Reason Stop Dose Admin Vancomycin HCl 1 gm/ Sodium 250 mls @ 250 mls/hr 05/17/18 12:34 05/17/18 13: 14 Chloride IV 05/17/18 13:33 250 mls/hr ONCE STA Administration Sodium Chloride 1,000 mls @ 1,000 mls/hr 05/17/18 12:39 05/17/18 13:14 Sodium Chloride IV 05/17/18 13:38 1,000 mls/hr BOLUS STA Administration Vital Signs: Temp Pulse Resp BP Pulse Ox 05/17/18 12:20 94 L 05/17/18 11:43 91.3 F L 113 H 12 134/75 94 L 05/17/18 11:40 94 L Departure - Departure Time of Disposition: 13:58 Disposition: ADMITTED INPATIENT Discharge Problem: Acidosis, Encephalopathy Sepsis Qualifiers: Sepsis type: sepsis due to unspecified organism Qualified Code(s): A41.9 - Sepsis, unspecified organism Condition: Poor Pt referred to PMD for follow-up: No IPMP verified?: No Allergies/Adverse Reactions: Allergies aspirin Adverse Reaction (Verified 05/17/18 12:18) Iodinated Contrast- Oral and IV Dye [Iodinated Contrast Media - IV Dye] Adverse Reaction (Verified 05/17/18 12:18) moxifloxacin Adverse Reaction (Verified 05/17/18 12:18) Home Medications: Ambulatory Orders Atorvastatin Calcium [Lipitor] 80 mg PO DAILY 04/26/13 Clopidogrel Bisulfate [Plavix] 75 mg PO DAILY 02/13/17 Colchicine 0.6 mg PO DAILY 02/13/17 Ipratropium/Albuterol Sulfate [Combivent Respimat Inhal [place]] 1 spray IH QID Tamsulosin HCl [Flomax] 0.4 mg PO DAILY 06/01/17 Bumetanide 0.5 mg PO BEDTIME 05/13/17 Gabapentin 300 mg PO BID 08/22/17 Bumetanide 1 mg PO BID 10/15/17 Bupropion HCl [Wellbutrin Sr] 150 mg PO BID 10/15/17 Calcitriol [Rocaltrol] 0.25 mcg PO DAILY 10/15/17 Blood Sugar Diagnostic [Glucose Test Strip] 1 each MC TID strip 10/16/17 Hydrocodone/Acetaminophen [Hydrocodone-Acetamin 10-325 Mg] 1 each PO QID Ipratropium/Albuterol Sulfate [Combivent Respimat Inhal [place]] 20 - 100 mcg IH QID #1 ih 10/16/17 Lancets [Micro Thin Lancets] 1 each MC TID #1 each 10/16/17 Levothyroxine Sodium 125 mcg PO DAILY 10/16/17 Nitroglycerin 4 mg SL PRN 10/16/17 Nystatin/Triamcin [Nystatin-Triamcinolone Cream] 15 gm TP BID 10/16/17 Parab/Cet Alc/Stryl Alc/Pg/Sls [Gentle Skin Cleanser] 473 ml TP DAILY PRN Polyethylene Glycol 3350 [Glycolax] 527 gm PO DAILY powder 10/16/17 Transfer Form Completed: No Disposition Discussed With: Patient
[2018-05-17] MEDS ORDERED: ZOSYN 3.375 GM 3.375 GM in SODIUM CHLORIDE 50 ML IV STA (14:04)
[2018-05-17] MEDS ORDERED: NITROGLYCERIN SL SCH (14:15)
[2018-05-17] MEDS ORDERED: ALBUTEROL 0.042% NEB NEB PRN (14:17)
[2018-05-17 15:19] VITALS: BMI 31.0
--- NOTE | 2018-05-17 15:25 | PCM ---
- Chief Complaint Chief Complaint: Cellulitis, CHARLINE, Hypotension, Encephalopathy/Altered mental status. - History of Present Illness History of Present Illness: 72 yr old CM presented to [facility] ER on 05/17/18 brought by EMS with acutely altered mental status. The patient normal provider is Claudia Olea. Temperature below 96.8 (was 91.3 upon arrival) improved to 94 degres , pulse was 113 and now 77. Resp rate up to 22 and altered mental status. He met criteria for SIRS. Was initially unresponsive, after friends/family tried to check on him. Brought to ER and mental status also decreased. He was responsive /lethargic, weak. Similar episodes occurred previously. Maliase, weakness, decreased PO intake, cognitive dysfunction, weakness. History of DM2, hypothyroid, dyslipidemia, CAD, History of SD, HTN, CHF, A-fib, COPD, asthma, anemia, GERD, CKD, Anxieyt, depression, chronic back pain. Numerous comorbidities. Exam in ER moderately ill appearing, patent airway, no murmur, normal rate/rhythm. Strength normal. Neurologically intact. EKG was normal sinus 13:57. Re-evaluated at 13:57 by ER, no active disease, lungs clear, warm and dry skin, CV RRR. Contacted me at 1400. Patient seen by me 15:30. WBC noted to be 25.43, Hgb 13.1, plt 169. Sodium 132, K+ 2.9, CL 94, CR 1.30, and BUN 17 with glucose 134. CBC with neutrophil predominance. ABC 7.124 pH, pc02 71.9, p02 81, hc03 23.6, =6 base excess, mann +. Non rebreather. ABG supports Acute uncompensated primary resp acid with metabolic acid as well. Mildly large anion gap of just under 16. Sodium is mildly low, likely chornically at 132, K+ dficiency 2.9. Cr 1.30. Glucose 134. Calcium normal 9.0. NO magnesium was checked. AST elevated 91. CK elevated at 1025, CKMB 26.4 but Troponin normal. Dehydration with some early/rhabdo possible. Albumin low at 2.5. ETOH was negative. Lactic acid elevated at 39.7. procalcitonin 4.16. Urine 1+ protein, 1+ ketones, 1+ blood, 1+ bili, 0.2 uro 0- 2 microscopic RBC. REpeat ABG respiratory acidosis persisted. FIo2 50 on bipap. UDS completed and neative. He was given fluids 100 mls/hr K+CL D5 NS +20 K+. Vanco started, Bolus 1 L in ER. Septic acidotic, encephalopathic, improved withfluids. Allergic to contrast dye. Patient seen in SCU-2 HE is unable to provide much history, very hard of hearing. He has had issues historically trying to dig out hearing aid components. The patient thinks it is Friday, Apr 2018. This is reasonable. He noted that he was sitting in his chair and slid out. He knows it was an afternoon but was unable to tell me more. He was watching TV before lunch, did not eat anything and simply slid out of his bed. Denies any history of stroke. He has had SD historically per his report. No chest pain now. He hurts all over but no worse than he has hurt historically. Chronic poor perfusion bilateral LE, Chronic wound care bilateral LE. He follows with pain management, no recent pain meds, romel notes he only takes them as he needs them. No memory of last dose, no memory of last BM, noted urinating fine. History of DM, I asked if he was taking any insulin, "NO THEY TOOK ME OFF THAT." I contacted to get recent labs/records/ admits. They noted note. I contacted [facility] ([facility]). last visit 2017 pain management, limited labs at [facility]. CBC/CMP 03/2018 at [facility]. No admissions in last 1 year. ER last 10/2017. He does not remember much beyond sliding out of the chair. He cannot feel below his knees bilaterally. He is holding his arm abnormally along his abdomen. Nurse was concerned for posturing. I aksed him to smile and he said no as he had no teeth. He was able to pursed lip/puff lips and was able to move eyes in all directions, tongue out. He was not happy to be hear. We talked about code status. He is aware enough to know that he wants "EVERYTHING DONE." I tried to talk to him about CPR and consequences and he wanted everything done. He does not know his med list, I am trying to get these from [facility] , pharmacy is closed until friday (HOliday weekend with tomorrow being ). I contacted PCP office at [phone]. Office was closed. The phone message tells patients to go to UC or ER. I did talk with answering service. They said they could not help me until office opens again. Outpatient chart reveiwed and levothyroxine 125 mcg daily, combivent QID, norco 10 QID, Bumetanide 1mg BID, calcitriol 0.25 mcg capsule daily, neurontin daily. Bumetanide 0.5 QHS. Plvaix 75 daily, flomax 0.4 daily and lipitor 80 daily. ABG: Acute (uncompensated) primary respiratory acidosis, with metabolic acidosis, with normal anion gap ABG #2: 12:45 PM today Acute (uncompensated) primary respiratory acidosis - Review of Systems Constitutional: chills, weakness, fatigue, loss of appetite. No: fever, sweats , other Eyes: No: blurred vision, double-vision, discharge, itching, pain, redness, photophobia, other Ears: No: pain, bleeding, drainage, ringing, hearing loss, other Nose: No: bleeding, congestion, discharge, other Throat: No: pain, swelling, voice change, other Mouth: other (edentulous). No: bleeding, pain, swelling Respiratory: cough, shortness of air, wheeze. No: hemoptysis, pain with breathing, other Cardiovascular: No: chest pain, left arm pain, diaphoresis, PND, orthopnea, edema, palpitations, syncope, other Gastrointestinal: other (does not remember recent BM). No: abdominal pain, nausea, vomiting, diarrhea, melena, hematemesis, hematochezia, dysphagia, constipation Genitourinary: other (fitzgerald placed in ER). No: dysuria, hematuria, frequency, incontinence, flank pain, penile discharge, testicular pain, testicular swelling Neurological: other (Was sitting in chair, normal state of health (chronically poor) and he slipped out and does not remember remainder. ). No: headache, dizziness, seizure, numbness, weakness, speech difficulty, problems with walking , tremor, fainting Musculoskeletal: pain, swelling in joints Skin: wounds, bruising (bilateral UE. ), other (chronic poor perfusion bilateral LE, overlying eschar. Chronic wound care. ) Immunology: frequent infections. No: hives, itching, difficulty healing, other Hematology: easy bruising. No: easy bleeding, swollen glands, other Endocrine: heat intolerance, excessive thirst, excessive hunger. No: weight changes, cold intolerance, polyuria, other Psychiatric: depression, sleeplessness. No: suicidal, hallucinations Habits: tobacco use - Past Medical History Past Medical History: Chronic obstructive pulmonary disease, Diabetes mellitus, Hypertension. Myocardial infarction (x3), Chronic neck pain, chronic debility , Dependent edema, acquired hypothyroid, chronic afib, BPH w/ LUTS/Frequency, 1 ppd smoker, CAD, DM 2, Essenital HTN. - Past Surgical History Past Surgical History: Appendectomy, cholecystectomy, Cardiac stent, neck surgery. - Allergies Allergies/Adverse Reactions: Allergies Allergy/AdvReac Type Severity Reaction Status Date / Time aspirin AdvReac Verified 05/17/18 12:18 Iodinated Contrast- Oral and AdvReac Verified 05/17/18 12:18 IV Dye [Iodinated Contrast Media - IV Dye] moxifloxacin AdvReac Verified 05/17/18 12:18 - Medications Medications: Medications Generic Name Dose Route Start Last Admin Trade Name Freq PRN Reason Stop Dose Admin Albuterol Sulfate 1 vial 05/17/18 14:17 Albuterol 0.042% Neb NEB RTQ4H PRN Wheezing Albuterol/Ipratropium 1 vial 05/17/18 18:00 Duoneb NEB RTQ6H CIARA Clopidogrel Bisulfate 75 mg 05/18/18 09:00 Plavix PO DAILY CIARA Colchicine 0.6 mg 05/18/18 09:00 Colcrys PO DAILY CIARA Enoxaparin Sodium 30 mg 05/18/18 09:00 Lovenox SUBCUT DAILY CIARA Potassium Chloride/Dextrose/Sod Cl 1,000 mls @ 100 mls/hr 05/17/18 13:47 11/02 14:04 D5%-Ns-Kcl 20 Meq/L Iv Randi IV 05/17/18 23:46 100 mls/hr .Q10H STA Administration Vancomycin HCl 1 gm/ Sodium 250 mls @ 125 mls/hr 05/18/18 09:00 Chloride IV Q12HR CIARA Piperacillin Sod/Tazobactam 50 mls @ 50 mls/hr 05/17/18 21:00 Sod 3.375 gm/ Sodium Chloride IV Q8HR CIARA Non-Formulary Medication 80 mg 05/18/18 09:00 Atorvastatin Calcium [Lipitor] PO DAILY CIARA Non-Formulary Medication 150 mg 05/17/18 21:00 Bupropion Hcl [Wellbutrin Sr] PO BID CIARA Non-Formulary Medication 0.25 mcg 05/18/18 09:00 Calcitriol [Rocaltrol] PO DAILY CIARA Non-Formulary Medication 125 mcg 05/18/18 09:00 Levothyroxine Sodium [Levothyroxine Sodium] PO DAILY CIARA Non-Formulary Medication 4 mg 05/17/18 14:15 Nitroglycerin [Nitroglycerin] SL PRN CIARA Non-Formulary Medication 527 gm 05/18/18 09:00 Polyethylene Glycol 3350 [Glycolax] PO DAILY CIARA Nystatin/Triamcinolone Acetonide applic 05/17/18 21:00 Mycolog TP BID CIARA Sodium Chloride 1 syr 05/17/18 11:45 Saline Flush IVF PRN PRN To flush IV Tamsulosin HCl 0.4 mg 05/18/18 09:00 Flomax PO DAILY CIARA - Family History Past Family History: Lives alone, no family locally, Mother brain aneursym, sister cardiac disease father lung cancer. - Social History Past Social History: Every day smoker, light tobacco. Lives alone, has a cat. - Vital Signs Temperature: 94.0 F Pulse Rate: 77 Respiratory Rate: 22 Blood Pressure: 134/75 O2 Sat by Pulse Oximetry: 96 - Body Composition Height: 5 ft 7 in Weight: 198 lb Body Mass Index (BMI): 31.0 - Physical Examination HEENT: Constitutional: Appearance-Now on NC, started on NRBM and bipap. He is doing okay at present. He is a poor historian. Legs chronically poor perfusion, chronic wounds. Orientation- Oriented x 2, name, month/year (he did say april but it just changed to may). Not aware of day but was off by 1 day. Stating friday instead of friday. Gait-Unable to assess, in bed, legs propped numerous blankets in place. Build and Nutrition-obesity w/ central adiposity BMI 31. General- Very hard of hearing, bilateral UE with eccymoses scattered. Integumentary: MIld ?abrasion bridge of nose, left worship. Bilateral arms with scattered ecchymoses, abrasions and e/o broken blood vessels likely secondary to plavix. Bilateral LE below knees hyperpigmented, lichenified, skin has chronic venous insufficiency, chronic stasis. Left dorsum of foot with slough/yellow eschar/broken bulla along the lateral maleollus, lateral foot and dorsum of foot. Similar lesions medially along foot/ankle. He has poor capillary refill, chronic per his report. He states that they always look like this. No odor, Poor nails. Head/Neck: Head- normocephalic. Neck- without visible/palpable lumps or pulsations. Palpation- No bony tenderness about head/neck along frontal, occipital, temporal, parietal, mastoid, jawline, zygoma, orbit or any other location. NO temporal artery tenderness. No TMJ tenderness. Neck Supple. Thyroid-No thyromegaly, no nodules Eye: Bilaterally PERRLA, EOMI. No discharge. Upper and lower eyelids are normal. Sclera/conjunctiva normal without discharge. Cornea is normal and clear. Lens is normal. Eyeball appears normal. No ciliary flushing, no conjunctival injection. CN 2, 3, 4, 6 intact with testing. Normal direct/ consensual changes on exam. ENMT: Pinna- normal without tenderness or erythema. External auditory canal Left- normal without erythema or discharge, no excessive cerumen. External auditory canal Right-normal without erythema or discharge, no excessive cerumen. TM left- Sweeney/pearly, normal light reflex and anatomy TM Right- Sweeney/ pearly, normal light reflex and anatomy Hearing Assessment- VERY LOUD SPEECH NEEDED> Nose and sinus- No sinus tenderness along frontal/maxillary region. External appearance normal and midline. Nares- bilateral quiet airflow, no discharge. Nasal mucosa- No bleeding noted and no ulcerations observed. Selby, moist. Turbinates non boggy. Lips- normal color, moist without cracks/lesions Oral Cavity/Palate- hard/soft palate intact without lesions, oral mucosa pink and moist. Dentition assessed edentulous. Oropharynx- no pharyngeal erythema, Uvula midline. No post nasal drip. No exudate. Salivary glands- Non tender to palpation CHEST/LUNG: Inspection- symmetric chest wall no pectus deformity. Normal effort , no obvious distress, no use of accessory muscles. Breathing calmly with nasal canula in place. We will titrate to >90%. Palpation- nontender sternum, ribline. No abnormal pulsations. Auscultation- Breath sounds diminished but no rales. He has occasional wheeze, which is likely chronic from COPD but he has no e/o consolidation. Whispered pectoriloquy negative, egophany negative.tracheal sounds reduced/coarse and similar for bronchial sounds overlying sternum, Bronchovessicular sounds between scapulae posteriorly, and throughout periphery. Lungs are mostly clear today as discussed/reported by ER. Adventitious sounds- Scattered wheezes, No rales, scattered rhonchi. CARDIOVASCULAR: Palpation/Percussion- PMI displaced inferiorly no palpable thrill Auscultation- Regular rate and rhythm. Distant sounds. I did not appreciate a murmur in sitting/reclined supine position. Extremities- peripheral extremities bilaterally show s/sx of vascular compromise. Peripheral edema bilateral LE below knees. Skin is thickened, deep valleys/ wrinkles. NO obvious/increased warmth.Cap refill is diminshed but likely chronic. ABDOMEN: Inspection- normal and no visible pulsations. Normal contour. Auscultation- Bowel sounds normal, no abdominal bruits. Palpation/Percussion- soft, non-tender, no rebound tenderness, no rigidity (guarding), no jar tenderness, no masses. Liver-no appreciable hepatosplenomegaly, Peripheral Vascular: Upper extremity Left- Mann test normal. Normal temperature with pink nailbeds and no ulcerations. Upper extremity Right- Allens normal Normal temperature with pink nailbeds and no ulcerations. Lower extremity- Decreased pedal pulses, DP pulses/PT pulses. Cap refill ~3 seconds bilaterally. Feet/legs below knees in chronic poor state of health. + ulcerations L>R LE at this time. Both chronically poor. Pedal hair/leg hair absent. Hyperpigmentation down to the level of the mid to distal thigh bilatrally. Difficulty elevating legs. I do not have a recent weight. Was 240 on 11/11/2017. Now listed at 198 which is opposite of what I would expect if fluid retention. Musculoskeletal: Generalized-Poor perfusion bilateral LE. I will get doppler LE bilaterally to make sure blood supply is reasonable. May consider transfer to [facility] for vascular concern and to allow him to be with primary team. Clubbing, no cyanosis, chronic vascular compromise bilateral LE. NO sensation below knee bilaterally. Upper extremity- No visible deformity. Right arm draped across abdomen. Nurse was concerned. He was able to flex shoulder against gravity, tenderness entirety of shoulder, AC joint etc. He notes chronically like that. [employer] was 5/ 5 bilaterally. Ecchymoses ventral forearms bilaterally. He has reduced sensation below elbows. Reflexes 1+ bilaterally for bicep. [employer] 5/5 and strength 5/5 bilateral UE. Elbow palpated, no tenderness overlying olecranon bilaterally. Normal supination, pronation to active/passive ROM and to resisted rotation. Bicep insertion/tricep insertion appear normal without obvious pathology. Rotator cuff evaluated and intact. Normal wrist ROM bilaterally. Normal hand movement, intrinsic muscles of hands normal. No tenderness to palpation of hands/wrists/elbows. Lower extremity- Hip: Reduced ROM of hips/knees. Unable to lift legs against gravity. Chronic debility. Below knees is chronically edematous and now with ? lymphedema changes, thickening skin, increased valleys and left> right with some overlying epidermal breakdown. Neurological: General- Moves bilateral UE well, able to wiggle big toe bilaterally. Symmetrical face and body posture. Cranial nerves- individually evaluated II-XII and intact. PERRLA, Normal EOMI, visual/special senses appear intact, Face is symmetrical and normal sensation/movement, normal tongue, normal strength/posture of neck musculature. Reflexes- intact with DTR 1+ bicep. Absent patellar, Achilles bilaterally. Strength- 5/5 bilateral UE Soft touch- Reduced but present bilateral UE and absent below knee bilateral LE. Temperature sensation- absent bilateral UE and LE. Neuropsych: Oriented- Semi oriented to Person, place, time. (AAOx3), Mood/affect - Depressed, irritable, somewhat confused. Very hard of hearing. Speech-Normal speech, normal rate, normal tone, normal use of language, volume and coherence. Thought content- Confused. Associations- intact, no SI/HI, no hallucinations, delusions, obsessions. Judgment/insight- Quesitonable. Memory-Recall intact, remote and recent memory questionable/limited. Knowledge- Reduced Lymphatic: Head/Neck- normal size and non tender to palpation. I reviewed his recent labs. ABG 05/17/18 1536 FIO2 55, 14L, 7.299 pH improving. PCO2 48.6 improving. PO2 118, BE -3/. Labs from 03/20/18 obtained after calling [facility]. Sodium 133, K+ 4.2, cl 80, Co2 27, gap 16, glucose 95, cr 2.1, calcium 9.5, alb 3.3, bilirubin 2.4, alk phos 103, alt 29, ast 57. Provider notified of these results and called for patient to go to ER. They were worried abuot his renal function and concerned with infection. WBC at that time were 20.8. Recommended ER visit. Their noted stated he was aware of SE and issues w/ not getting help. If running fever call ambulance to get him. Patient stated "JORDAN NICOLE and DR. OLEA needed to mind their own business and shutup!" WBC 03/20/18 CBC 20.8, hgb 13.1,hcg 40.9, mcv 89.1, MCHC 32, RDW 15.5 elevated, plt 88 low. Lymph 6.5, enutrophils 18.4 ANC. - Lab/Tests/Diagnostic Imaging Lab/Tests/Diagnostic Imaging: Laboratory Last Values WBC 25.43 K/ul (4.2-10.2) H 05/17/18 11:52 RBC 4.50 10^6/ul (4.70-6.10) L 05/17/18 11:52 Hgb 13.1 g/dl (14.0-18.0) L 05/17/18 11:52 Hct 39.2 % (42.0-52.0) L 05/17/18 11:52 MCV 87.1 fl (80.0-94.0) 05/17/18 11:52 MCH 29.1 pg (27.0-31.0) 05/17/18 11:52 MCHC 33.4 (31.8-35.4) 05/17/18 11:52 RDW Coeff of Alen 15.8 % (11.6-14.8) H 05/17/18 11:52 Plt Count 169 10^3/uL (140-440) 05/17/18 11:52 Immature Gran % (Auto) 1.3 % (0.0-5.0) 05/17/18 11:52 Neut % (Auto) 84.9 05/17/18 11:52 Lymph % (Auto) 9.8 (10.0-50.0) L 05/17/18 11:52 [place] % (Auto) 3.7 (0-10) 05/17/18 11:52 Eos % (Auto) 0.1 % (0.0-7.0) 05/17/18 11:52 Baso % (Auto) 0.2 % (0.0-3.0) 05/17/18 11:52 Immature Gran # (Auto) 0.3 (0.0-1.0) 05/17/18 11:52 Neut # (Auto) 21.6 K/ul (2.0-6.9) H 05/17/18 11:52 Lymph # (Auto) 2.5 K/uL (0.60-3.4) 05/17/18 11:52 [place] # (Auto) 0.9 K/uL (0.4-2.0) 05/17/18 11:52 Eos # (Auto) 0.0 K/ul (0.0-0.7) 05/17/18 11:52 Baso # (Auto) 0.1 K/uL (0-0.2) 05/17/18 11:52 Puncture Site Lrad 05/17/18 15:36 O2 Saturation 98.0 % (95-100) 05/17/18 15:36 ABG pH 7.299 (7.35-7.45) L* 05/17/18 15:36 ABG pCO2 48.6 mmHg (35-45) H 05/17/18 15:36 ABG pO2 118.0 mmHg (85-100) H 05/17/18 15:36 ABG HCO3 23.8 (22.0-26.0) 05/17/18 15:36 ABG Total CO2 25 (22.0-28.0) 05/17/18 15:36 ABG Base Excess -3 (-2.0-2.0) L 05/17/18 15:36 Mann Test + 05/17/18 15:36 O2 Delivery Device Vmx 05/17/18 15:36 Oxygen Liter Flow 14.00 05/17/18 15:36 FiO2 % 55.0 % 05/17/18 15:36 Sodium 132 mmol/L (136-145) L 05/17/18 11:52 Potassium 2.9 mmol/L (3.5-5.1) L 05/17/18 11:52 Chloride 94 mmol/L (98-107) L 05/17/18 11:52 Carbon Dioxide 25 mmol/L (23-31) 05/17/18 11:52 Anion Gap 15.9 05/17/18 11:52 BUN 17 mg/dL (7-18) 05/17/18 11:52 Creatinine 1.30 mg/dL (0.60-1.10) H 05/17/18 11:52 Estimated GFR (MDRD) 54.00 mL/min 05/17/18 11:52 BUN/Creatinine Ratio 13.07 05/17/18 11:52 Glucose 134 mg/dL (82-115) H 05/17/18 11:52 Lactic Acid 39.7 mg/dL (4.5-19.8) H 05/17/18 11:52 Calcium 9.0 mg/dL (8.2-10.2) 05/17/18 11:52 Total Bilirubin 2.9 mg/dL (0.00-1.20) H 05/17/18 11:52 AST 91 U/L (15-37) H 05/17/18 11:52 ALT 31 U/L (12-78) 05/17/18 11:52 Alkaline Phosphatase 90 U/L (56-119) 05/17/18 11:52 Total Creatine Kinase 1025 U/L 05/17/18 11:52 CK-MB (CK-2) 26.4 ng/ml (0.0-3.6) H* 05/17/18 11:52 CK-MB (CK-2) % 2.47032 05/17/18 11:52 Troponin I < 0.0100 ng/ml (0.0000-0.4000) 05/17/18 11:52 Total Protein 7.0 g/dL (5.8-8.1) 05/17/18 11:52 Albumin 2.5 g/dL (3.4-5.0) L 05/17/18 11:52 Globulin 4.5 05/17/18 11:52 Albumin/Globulin Ratio 0.56 05/17/18 11:52 Procalcitonin 4.16 ng/mL (<0.05) 05/17/18 11:52 Urine Color Yellow (YELLOW) 05/17/18 12:02 Urine Clarity Clear (CLEAR) 05/17/18 12:02 Urine pH 6.0 (5-9) 05/17/18 12:02 Ur Specific [place] 1.020 (1.005-1.030) 05/17/18 12:02 Urine Protein 1+ (NEGATIVE) 05/17/18 12:02 Urine Glucose (UA) Trace (NEGATIVE) 05/17/18 12:02 Urine Ketones 1+ (NEGATIVE) 05/17/18 12:02 Urine Blood 1+ (NEGATIVE) 05/17/18 12:02 Urine Nitrite Negative (NEGATIVE) 05/17/18 12:02 Urine Bilirubin 1+ (NEGATIVE) 05/17/18 12:02 Urine Urobilinogen 0.2 (0.2) 05/17/18 12:02 Ur Leukocyte Esterase Negative (NEGATIVE) 05/17/18 12:02 Urine Microscopic RBC 0-2 (0-2) 05/17/18 12:02 Ur Squamous Epith Cells Not present (0-5) 05/17/18 12:02 Urine Opiates Screen Negative (NEGATIVE) 05/17/18 12:02 Ur Oxycodone Screen Negative (NEGATIVE) 05/17/18 12:02 Urine Methadone Screen Negative (NEGATIVE) 05/17/18 12:02 Ur Propoxyphene Screen Negative (NEGATIVE) 05/17/18 12:02 Ur Barbiturates Screen Negative (NEGATIVE) 05/17/18 12:02 U Tricyclic Antidepress Negative (NEGATIVE) 05/17/18 12:02 Ur Phencyclidine Scrn Negative (NEGATIVE) 05/17/18 12:02 Ur Amphetamine Screen Negative (NEGATIVE) 05/17/18 12:02 U Methamphetamines Scrn Negative (NEGATIVE) 05/17/18 12:02 U Benzodiazepines Scrn Negative (NEGATIVE) 05/17/18 12:02 Urine Cocaine Screen Negative (NEGATIVE) 05/17/18 12:02 U Cannabinoids Screen Negative (NEGATIVE) 05/17/18 12:02 Plasma/Serum Alcohol < 10.0 mg/dL (0.0-80.0) 05/17/18 11:52 BUN/CR Trends 05/17/18 05/17/18 Range/Units 11:52 16:00 BUN 17 17 (7-18) mg/dL Creatinine 1.30 H 1.05 (0.60-1.10) mg/dL WBC Trends 05/17/18 05/17/18 Range/Units 11:52 16:00 WBC 25.43 H 18.47 H D (4.2-10.2) K/ul H/H Trends 05/17/18 05/17/18 Range/Units 11:52 16:00 Hgb 13.1 L 11.4 L (14.0-18.0) g/dl Hct 39.2 L 33.8 L (42.0-52.0) % CPK/Troponin I Trends 05/17/18 05/17/18 Range/Units 11:52 16:00 Total Creatine Kinase 1025 916 U/L CK-MB (CK-2) 26.4 H* 27.3 H* (0.0-3.6) ng/ml CK-MB (CK-2) % 2.61976 2.17089 Troponin I < 0.0100 < 0.0100 (0.0000-0.4000) ng/ml ABG trending appropriately at this time most recently this pm. I will repeat CK MB in am to make sure it is trending down. A1C 4.8. CT Head negative CT abd: Mildly distended loops of small bowel within the anterior abdomen probably related to ileus or enteritis. Early partial small bowel obstruction is not exluded. Plain film in 24 hr recommended. Fitzgerald in bladder, bibasilar pneumonia (SIMILAR TO CXR in our system). CT chest: ?Bibasilar pneumonia. - Assessment (1) SIRS (systemic inflammatory response syndrome) Status: Acute Code(s): R65.10 - SIRS OF NON-INFECTIOUS ORIGIN W/O ACUTE ORGAN DYSFUNCTION SNOMED Code(s): 764913845 (2) Acidosis Status: Acute Code(s): E87.2 - ACIDOSIS SNOMED Code(s): 80965809 (3) Acquired hypothyroidism Status: Acute Code(s): E03.9 - HYPOTHYROIDISM, UNSPECIFIED SNOMED Code(s): 454096165 (4) Hyponatremia Status: Acute Code(s): E87.1 - HYPO-OSMOLALITY AND HYPONATREMIA SNOMED Code( s): 17914448 (5) Hypokalemia Status: Acute Code(s): E87.6 - HYPOKALEMIA SNOMED Code(s): 12707720 (6) Encephalopathy Status: Acute Code(s): G93.40 - ENCEPHALOPATHY, UNSPECIFIED SNOMED Code(s): 78302140 (7) Sepsis Status: Acute Code(s): A41.9 - SEPSIS, UNSPECIFIED ORGANISM SNOMED Code(s): 97050446 Qualifiers: Sepsis type: sepsis due to unspecified organism Qualified Code(s): A41.9 - Sepsis, unspecified organism (8) Diabetes mellitus with hemoglobin A1c goal of 7.0%-8.0% Status: Acute Code(s): E11.9 - TYPE 2 DIABETES MELLITUS WITHOUT COMPLICATIONS SNOMED Code(s): 552216684, 022130633 (9) Elevated CK-MB level Status: Acute Code(s): R74.8 - ABNORMAL LEVELS OF OTHER SERUM ENZYMES SNOMED Code(s): 057111660 (10) Chronic venous stasis Status: Acute Code(s): I87.8 - OTHER SPECIFIED DISORDERS OF VEINS SNOMED Code(s): 51859177 (11) Leukocytosis Status: Acute Code(s): D72.829 - ELEVATED WHITE BLOOD CELL COUNT, UNSPECIFIED SNOMED Code(s): 408365659, 214783632 (12) Thrombocytopenia Status: Acute Code(s): D69.6 - THROMBOCYTOPENIA, UNSPECIFIED SNOMED Code(s) : 759991395 (13) Elevated parathyroid hormone Status: Acute Code(s): E34.9 - ENDOCRINE DISORDER, UNSPECIFIED SNOMED Code(s ): 7777995, 1471356, 284776288, 504511798 (14) Low vitamin D level Status: Acute Code(s): R79.89 - OTHER SPECIFIED ABNORMAL FINDINGS OF BLOOD CHEMISTRY SNOMED Code(s): 389517641 - Plan Plan: Assessment and Plan: Admitted to [facility] with very The patient is complicated, followed chronically by wound care. He presented with SIRS with sepsis and concern for rhabdo. ABG are improving. He is doing better. I would like to fluid hydrate to see if renal function improves. ?Rhabdo, negative Troponin. i will repeat these. CT reviewed from today and chest CT suggests possible pneumonia/pulmonary edema. I reviewed CXR from 10/15/17 and this showed same bilateral interstitial lung infiltrates edema vs pneumonia. They have started him on vancomycin and zosyn. I will change the zosyn to cefepime as I am concerned that the zosyn+Vanco may worsen renal function. I checked back to labs from 2015 and he has history of hypovitaminosis D, hsitory of elevated PTH, hypothyroid with TSH up into 207.853 range on 12/07/15. I do not have recent labs, and there is no recent f/ u in our system that I could see. Reviewed Dr. Lepe note from 10/2017 recommended admit then, declined. HE has been with home health. I reviewed and compared labs from our system. It appears his baseline creatinine is around 1.21. CT head, neck, abd/pelvis/chest mostly benign except for lung suggesing possible interstitial pulmonary edema vs bibasilar pneumonia. He has improved already from ER, with fluid bolus. I will keep strict I+O and weights. WE will monitor him, his sodium, Hgb, renal function and see how he does overnight. If worsening, I would suggest higher level care for his care. 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 Hospital med records sent me information about 03/20/18 labs very similar to these. ABG has trended appropriately today, renal function is improving but his CPK has worsened since this am. We will change his abx from zosyn/vanco to vanco/ cefepime and I will use the 2G BID dose as his creatinine is now 1.05. We will monitor for pain/tightness of legs. So far they are chronically poor but nothing at present consistent with compartment syndrome. I will also treat with lovenox to cover. I think SCD will worsen his legs. I will try to contact wound care/get last OV to see if any of this is changing and likely see if [employer] will look at his legs this coming friday to see if they are any different. I am worried about blood supply to feet but this is chronic and he notes that they do not look any different. I considered adrenal issue today. He has history of hypovitaminosis D, history of elevated PTH, history of chronic kidney disease. Now found unresponsive, unknown duration and elevated CPK. A1C is at goal, ABG are improving, vitals are stabilizing. I will keep him on abx until cultures return for blood/urine. NO cough, no uri, chronic COPD not in exacerbation. ?Rhabdo as possibility. His ABC have been maintained, breathing comfortably, fluid hydrated. We will closely watch weight. Nurses and I talked about his health and discussed need to monitor this. He has fitzgerald in place. We reviewed electrolytes, reviewed EKG and he is on Telemetry. We will monitor for compartment syndrome, we will monitor for complications and try to get peak CKMG. PLT have dropped from initial evaluation as have HGb and WBC. Plt levels about what they were in 2017. CHARLINE: ?Rhabdo with elevated CPK, negative troponin. Would like to fluid hydrate to see if renal function improves. My concern is CT chest relayed some possible pulmonary edema. I am concerned about making this process worse. Review of labs back to 2015 shows that his baseline cr is about 1.21. Creatinine and as of this evening he was at 1.05 and improved. - CMP in am - Continue fluids 110/hour - CPK in am. Chronic Venous Stasis: We will try to get wound care note when available. Hypothyroid: Out of control. Unknown if taking meds, will resume his previous meds. Risks of AFIB d/w patient. TSH - Resume levothyroxine dose of 125 mcg. Hypokalemia: Resolved with the last CMP 1600 today. - CMP in am tomorrow - Continue fluids 110cc/hour Hyponatremia: Subacute to chronic. Stable on last CMP 1600 today. Will monitor. - CMP in am Elevated CKMB: Would like to fluid hydrate and see if renal function improves. He has creatinine of 1.05, now his sodium/K+ are better. We are fluid hydrating him at present. I am concerned with over hydrating as this can cause ? worsening of pulmonary infiltrates (chronic) and cardiac issues. I will continue to hydrate with 100ml/hour. Goal urine output ~200ml/hour. Ideally I would use ~300-400ml/hour but he already had 1 L bolus and is now at 100/hour and creatinine is better than last baseline. Keller weight 146 lb. Maintenance fluids 106 - Repeat in am CPK Acquired Hypothyroidism. Reviewed outpatient chart and patient had last TSH 37.6 and Free T4 of 1.6 on 10/15/17 without repeat available. We will continue his last dose of synthroid. - TSH now - Free T4 now Diabetes 2 a1c goal 7-8%: No recent A1C on file. . Ordered this today. Glucose mildly elevated in hospital. Not on insulin. NO continued hypoglycemics from home. A1C was 4.8. STable at this time. No meds while in hospital. Diet: Regular DVT Prophy: COmplicated by [facility]. Will use lovenox as CT head negative for bleed, no BEYER by patient.40 mg okay as last Creatinine was 1.05. I will be cautious with this for now. Consider increase tomorrow. - Lovenox 30mg daily. Thrombocytopenia: He had plt of 88 03/21/18 was somewhat hemocontrated on admit and now back to 83. Repeat CBC in am. NO e/o DIC on exam/history. No history of issues with lovenox. Not on asa as allergic on plavix regularly. - CBC in am. Antibiotics: Concern for renal function with the Vanco/zosyn as these together have nephrotoxicity. I will change this to vanco and cefepime. - Vanco to continue - Cefepime [address] chest: ?Bibasilar pneumonia. I will treat with vanco and with cefepime for now. This is similar to CXR within our system prior to the CT today. He did not state he had aspirated. He is allergic to FQ. Macrolide may be of benefit. History of afib. Monitor closely on monitor. - Azithromycin 500 daily x [address] abdomen: ?SBO. No pain, no issues. NO NG at present. Monitor. We will repeat plain film as per radiology in 24 hrs. Dispo: Admit inpatient. I will get/review records as they become available. SIRS with unknown source of sepsis. Rhabdo is likely with elevated CK MB and he had CHARLINE on admit. Hypothyroid, not treated adequately. I do not know if he has been taking his levothyroxine so I will resume dose and he will get that here. Needs Outpt followup. Encephalopathy is present. 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 Would recommend f/u as outpatient for this problem. I will see again tomorrow around 7-8 am. Nurses have been very helpful. - Admit Inpatient status - i+O strict. - Rectal temp - Daily Weight - Repeat evaluation pulses in feet are prsent but distant. NO increased painin legs, chronic problem and unchanged. - Add zithromycin 500 daily x 5 days. - Cefepime 2g BID x 10 days. - Vancomycin until cultures return. >70 minutes spent in coordination of care/review of care and direct patient contact, not including charting time. Attempted to get records from 2 previous hospitals. Patient history is limited.
[2018-05-17] MEDS: DUONEB NEB SCH ×2 (17:56→23:10)
[2018-05-17] MEDS: D5%-NS-KCL 20 MEQ/L IV SOL 1,000 ML IV STA ×2 (18:34→18:45)
[2018-05-17] MEDS ORDERED: WELLBUTRIN XL PO ONE (20:17)
[2018-05-17] MEDS ORDERED: MAXIPIME IV ONE (20:17)
[2018-05-17] MEDS: MAXIPIME 2 GM in SODIUM CHLORIDE 100 ML IV SCH (20:31)
[2018-05-17] MEDS: NYSTOP POWDER TP SCH (20:31)
[2018-05-17] MEDS ORDERED: NON-FORMULARY MEDICATION (Bupropion Hcl [Wellbutrin Sr] 150 MG) PO SCH (21:00)
[2018-05-17] MEDS ORDERED: ZOSYN 3.375 GM 3.375 GM in SODIUM CHLORIDE 50 ML IV SCH (21:00)
[2018-05-18] MEDS: DUONEB NEB SCH ×4 (05:20→23:15)
[2018-05-18] MEDS ORDERED: D5%-NS-KCL 20 MEQ/L IV SOL 1,000 ML IV SCH (06:30)
[2018-05-18] MEDS ORDERED: NITROSTAT SL PRN (07:00)
--- NOTE | 2018-05-18 08:31 | PCM.PROG ---
Subjective: 72 yr old hospital day 1 admitted 05/17/18 with CHARLINE, Elevated CKMB/CK consistent with rhabdo, CAD, CKD, Chronic peripheral venous stasis/dermatitis and wounds following with wound care, COPD, DM2 controlled, Thrombocytopenia, chronic normoctyic anemia, history of BPH on flomax, elevated PTH w/ low Vit D, hypothyroid w/ markedly elevated TSH and low free t4 (on synthroid 125mcg), possible pneumonia via CT chest and ?early SBO/enteritis by CT abdomen (NON CONTRASTED STUDIES). Reviewed overnight notes and talked with nursing this am. The patient has done remarkably well overnight, more talkative, more alert, more aware, and actually jovial/bubbly this am. BP remained marginal/low, HR normal Telemetry reviewed and no concerning rhythms at this time. He is up 2 lb from admit, urine output remains oliguric at ~0.3ml/kg/hour. His CKMB has peaked and is trending down, his a1c was 4.8 and stable (NO RECENT TRANSFUSION) . The patient is here with concern for ?pneumonia, ?worsening wound infection of bilateral legs and is on cefepime, azithromycin and vancomycin. He has had fluids running at 110ml/hr. CKmB/CK has peaked and is now declining. Despite this, his uout remains <0.5ml/kg/hr. I checked on him around 7:30 this am after reviewing tele, new labs, personally contacted lab this am and talked with Sonia and Urine culture no growth. No positive blood culture so far. His WBC has decreased from 18.47 to 11.61, hgb stable and plt dropped further from 83 to 70. He is on lovenox 30mg daily. ABG has been done is much better pH 7.299 to 7.409 now. K+ remains somewhat low, he is getting K+ in his fluids. Sodium is normal, creatinine has increased from 1.05 to 1.16. As noted above, we will bolus him. He notes that his most recent weight was 206. He came in at 198. He has been using bumetanide BID recently, noting that he had not been drinking as much lately and he agreed that he had lost ~7-8 lb. He noted he has been following with Dr. Kowalski nephrology, Dr. Tarango for his DM/Thyroid. I do not have any documentation for this at this time. We have done best we can do with last OV from Dr. Lepe as most up to date med list so far. Pharmacy closed for holiday (), PCP office closed, call center analyst for PCP said they could not help. I did call [facility] yesterday and got some recent labs and he is at baseline for his creatinine, so the CHARLINE has resolved. We are still monitoring s/sx of infection, the pneumonia is questionable at best as the CXR from 10/2017 showed similar findings. He is passing gas, he has uout but not adequate, he has normal aches/pains returning and his legs look much less prune like/wrinkled. Discussed with patient it is as if we were turning a raisin back into a grape. No weeping from legs. Chronic leg pain. Pedal pulses are palpable this am, color less dark today. No new wounds. Gentian britney staining on his ankles. He has same area of slough along the left dorsal foot and areas of eventual slough medially bilaterally. Pain is present rates pain in feet at 6/10. He rates achiness in body about a 4/10. He feels better now that he is sitting up, he stated he never lies flat so that may have been part of the problem. O2 has been dropped to 2L, he is titrating >90% and overall doing much better compared to admit. We talked about Length of stay, "I WILL ONLY STAY ONE MORE DAY." I discussed that we would only keep him as long as he needed to be here and no longer. He was happy with this answer. I discussed that it may require d/c on friday or . He is worried about his cat, has someone to help care for this at present. Body pain/arthritic pain, patient requested to resume norco 10 QID> I will add this back in. This am he was already partially eating a regular diet. I will allow him to have this and change him to diabetic diet for remainder of meals. HIs last A1C was 4.8 and this single meal should not cause any lasting concern at this point. He was pleased and very happy to eat this meal. Since he had this one, I did not take it away and as noted, he was very happy. He was laughing, he was talkative, edentuluous but very upbeat/positive and improved compared to admit. Cefepime 1 dose Zosyn 1 dose (d/c after arrival to floor with concern for renal tox w/ vanco) Vancomycin 1 dose Azithromycin (no doses so far according to nov) REVIEW OF SYSTEMS: Constitutional: Normal Temp now >96. No: fever, sweats, other Eyes: No: blurred vision, double-vision, discharge, itching, pain, redness, photophobia, other Ears: No: pain, bleeding, drainage, ringing, hearing loss, other Nose: No: bleeding, congestion, discharge, other Throat: No: pain, swelling, voice change, other Mouth: other (edentulous). No: bleeding, pain, swelling Respiratory: cough, shortness of air, wheeze. No: hemoptysis, pain with breathing, other Cardiovascular: No: chest pain, left arm pain, diaphoresis, PND, orthopnea, edema, palpitations, syncope, other Gastrointestinal: other (does not remember recent BM). No: abdominal pain, nausea, vomiting, diarrhea, melena, hematemesis, hematochezia, dysphagia, constipation Genitourinary: other (fitzgerald placed in ER). Oliguria No: dysuria, hematuria, frequency, incontinence, flank pain, penile discharge, testicular pain, testicular swelling Neurological: No: headache, dizziness, seizure, numbness, weakness, speech difficulty, problems with walking, tremor, fainting Musculoskeletal: pain, swelling in joints, back pain Skin: wounds, bruising (bilateral UE. ), other (chronic poor perfusion bilateral LE, overlying eschar. Chronic wound care. ) Immunology: frequent infections. No: hives, itching, difficulty healing, other. Hematology: easy bruising. Thrombocytopenia chronic. No: easy bleeding, swollen glands, other Endocrine: heat intolerance, excessive thirst, excessive hunger. No: weight changes, cold intolerance, polyuria, other Psychiatric: depression, sleeplessness. No: suicidal, hallucinations Habits: tobacco use Objective: Vital Signs - 24 hr 05/17/18 05/17/18 05/17/18 11:40 11:43 12:20 Temperature 91.3 F L Pulse Rate 113 H Respiratory 12 Rate Blood Pressure 134/75 O2 Sat by Pulse 94 L 94 L 94 L Oximetry 05/17/18 05/17/18 05/17/18 15:01 15:03 17:20 Temperature 94.0 F L 97.3 F L Pulse Rate 77 54 L Respiratory 22 22 Rate Blood Pressure 95/56 L O2 Sat by Pulse 100 96 97 Oximetry 05/17/18 05/17/18 05/17/18 18:09 20:00 22:00 Temperature 94.0 F L 97.4 F L Pulse Rate 77 66 Respiratory 22 18 24 Rate Blood Pressure 134/75 94/52 L O2 Sat by Pulse 96 100 Oximetry 05/18/18 05/18/18 02:00 05:45 Temperature 97.5 F L 97.4 F L Pulse Rate 68 60 Respiratory 18 22 Rate Blood Pressure 100/63 84/45 L O2 Sat by Pulse 100 100 Oximetry Constitutional: Appearance-Now on NC, doing very well, jovial happy, eating breakfast. Pleasant, talkative, Legs chronically poor perfusion, chronic wounds much less dehydrated and "pruny". Orientation- Oriented x 3, name, month/year, day, hospital, city. Gait- In hospital bed. Build and Nutrition-obesity w/ central adiposity BMI 31. General- Very hard of hearing, bilateral UE with eccymoses scattered. Integumentary: MIld ?abrasion bridge of nose, left hinduism, top of scalp. Bilateral arms with scattered ecchymoses, abrasions and e/o broken blood vessels likely secondary to plavix, blood draws as well. Bilateral LE below knees hyperpigmented, lichenified, skin has chronic venous insufficiency, chronic stasis. Left dorsum of foot with slough/yellow eschar/broken bulla along the lateral maleollus, lateral foot and dorsum of foot. Similar lesions medially along foot/ankle. He has poor capillary refill, but better today, color is better today, less sunken, less valleys, more hydrated. Skin yesterday appeared very dehydrated and calixto to a raisin. No odor, Poor nails. Healing ulcers bilateral toes. No new lesions, nothing looks secondarily infected. Groin with intertriginous rash. Sacrum not open, heels not open. Appropriate skin care being performed. Head/Neck: Head- normocephalic. Neck- without visible/palpable lumps or pulsations. Palpation- No bony tenderness about head/neck along frontal, occipital, temporal, parietal, mastoid, jawline, zygoma, orbit or any other location. NO temporal artery tenderness. No TMJ tenderness. Neck Supple. Thyroid-No thyromegaly, no nodules ENMT: Assessment- VERY LOUD SPEECH NEEDED> Nose and sinus- No sinus tenderness along frontal/maxillary region. External appearance normal and midline. Nares- bilateral quiet airflow, no discharge. Nasal mucosa- No bleeding noted and no ulcerations observed. [place], moist. Turbinates non boggy. Lips- normal color, moist without cracks/lesions Oral Cavity/Palate- hard/soft palate intact without lesions, oral mucosa pink and moist. Dentition assessed edentulous. Oropharynx- no pharyngeal erythema, Uvula midline. No post nasal drip. No exudate. Salivary glands- Non tender to palpation CHEST/LUNG: Inspection- symmetric chest wall no pectus deformity. Normal effort , no obvious distress, no use of accessory muscles. Breathing calmly with nasal canula in place. We will titrate to >90%. Palpation- nontender sternum, ribline. No abnormal pulsations. Auscultation- Breath sounds diminished but no rales. More clear today than yesterday, clearing lungs. He has occasional wheeze, which is likely chronic from COPD but still has no e/o consolidation. CARDIOVASCULAR: Palpation/Percussion- PMI displaced inferiorly no palpable thrill Auscultation- Regular rate and rhythm. Distant sounds. I did not appreciate a murmur in sitting/reclined supine position. Extremities- peripheral extremities bilaterally dehydrated, palpable pulses today. Peripheral edema chronically bilateral LE below knees but now sunken and apparent dehydration. Skin is thickened, deep valleys/wrinkles. NO obvious/ increased warmth.Cap refill is diminshed but likely chronic. ABDOMEN: Inspection- normal and no visible pulsations. Normal contour. Auscultation- Bowel sounds normal, no abdominal bruits. Palpation/Percussion- soft, non-tender, no rebound tenderness, no rigidity (guarding), no jar tenderness, no masses. Liver-no appreciable hepatosplenomegaly, Peripheral Vascular: Upper extremity Left- Mann test normal. Normal temperature with pink nailbeds and no ulcerations. Upper extremity Right- Allens normal Normal temperature with pink nailbeds and no ulcerations. Lower extremity- Decreased pedal pulses, but better today. DP pulses/PT pulses. Cap refill ~2.5 seconds bilaterally. Feet/legs below knees in chronic poor state of health. + ulcerations L>R LE at this time. Both chronically poor. Pedal hair/leg hair absent. Hyperpigmentation down to the level of the mid to distal thigh bilatrally. Difficulty elevating legs. I do not have a recent weight. Was 240 on 11/11/2017. Now listed at 198 which is opposite of what I would expect if fluid retention. Musculoskeletal: Generalized-Poor perfusion bilateral LE. No doppler was obtained as pulses were palpable. Chronic vascular issues bilateral LE. NO sensation below knee bilaterally. Upper extremity- No visible deformity. Right arm draped across abdomen. Nurse was concerned. He was able to flex shoulder against gravity, tenderness entirety of shoulder, AC joint etc. He notes chronically like that. Lead Clinical Research Coordinator was 5/ 5 bilaterally. Ecchymoses ventral forearms bilaterally. He has reduced sensation below elbows. Reflexes 1+ bilaterally for bicep. Lead Clinical Research Coordinator 5/5 and strength 5/5 bilateral UE. Elbow palpated, no tenderness overlying olecranon bilaterally. Normal supination, pronation to active/passive ROM and to resisted rotation. Bicep insertion/tricep insertion appear normal without obvious pathology. Rotator cuff evaluated and intact. Normal wrist ROM bilaterally. Normal hand movement, intrinsic muscles of hands normal. No tenderness to palpation of hands/wrists/elbows. Lower extremity- Hip: Reduced ROM of hips/knees. Unable to lift legs against gravity. Chronic debility. Below knees is chronically edematous and now with ? lymphedema changes, thickening skin, increased valleys and left> right with some overlying epidermal breakdown. Spine: Tender paraspinal musculature C/T/L, no spinous process tenderness. Neurological: General- Moves bilateral UE well, able to wiggle big toe bilaterally. Symmetrical face and body posture. Cranial nerves- individually evaluated II-XII and intact. PERRLA, Normal EOMI, visual/special senses appear intact, Face is symmetrical and normal sensation/movement, normal tongue, normal strength/posture of neck musculature. Reflexes- intact with DTR 1+ bicep. Absent patellar, Achilles bilaterally. Strength- 5/5 bilateral UE Soft touch- Reduced but present bilateral UE and absent below knee bilateral LE. Temperature sensation- absent bilateral UE and LE. Neuropsych: Oriented- fully oriented to Person, place, time. (AAOx3), he is playful this am, joking. Mood/affect- Very hard of hearing. Speech-Normal speech, normal rate, normal tone, normal use of language, volume and coherence. Thought content- Confused. Associations- intact, no SI/HI, no hallucinations, delusions, obsessions. Judgment/insight- Quesitonable. Memory-Recall intact, remote and recent memory remain questionable/limited. Knowledge- Reduced Lymphatic: Head/Neck- normal size and non tender to palpation. Laboratory Last Values WBC 11.61 K/ul (4.2-10.2) H D 05/18/18 04:30 RBC 3.89 10^6/ul (4.70-6.10) L 05/18/18 04:30 Hgb 11.3 g/dl (14.0-18.0) L 05/18/18 04:30 Hct 33.8 % (42.0-52.0) L 05/18/18 04:30 MCV 86.9 fl (80.0-94.0) 05/18/18 04:30 MCH 29.0 pg (27.0-31.0) 05/18/18 04:30 MCHC 33.4 (31.8-35.4) 05/18/18 04:30 RDW Coeff of Alen 15.8 % (11.6-14.8) H 05/18/18 04:30 Plt Count 70 10^3/uL (140-440) L 05/18/18 04:30 Immature Gran % (Auto) 0.5 % (0.0-5.0) 05/18/18 04:30 Neut % (Auto) 87.2 05/18/18 04:30 Lymph % (Auto) 8.5 (10.0-50.0) L 05/18/18 04:30 Kay % (Auto) 3.0 (0-10) 05/18/18 04:30 Eos % (Auto) 0.6 % (0.0-7.0) 05/18/18 04:30 Baso % (Auto) 0.2 % (0.0-3.0) 05/18/18 04:30 Immature Gran # (Auto) 0.1 (0.0-1.0) 05/18/18 04:30 Neut # (Auto) 10.1 K/ul (2.0-6.9) H 05/18/18 04:30 Lymph # (Auto) 1.0 K/uL (0.60-3.4) 05/18/18 04:30 Kay # (Auto) 0.4 K/uL (0.4-2.0) 05/18/18 04:30 Eos # (Auto) 0.1 K/ul (0.0-0.7) 05/18/18 04:30 Baso # (Auto) 0.0 K/uL (0-0.2) 05/18/18 04:30 Puncture Site Lrad 05/18/18 04:39 O2 Saturation 99.0 % (95-100) 05/18/18 04:39 ABG pH 7.409 (7.35-7.45) 05/18/18 04:39 ABG pCO2 43.2 mmHg (35-45) 05/18/18 04:39 ABG pO2 129.0 mmHg (85-100) H 05/18/18 04:39 ABG HCO3 27.3 (22.0-26.0) H 05/18/18 04:39 ABG Total CO2 29 (22.0-28.0) H 05/18/18 04:39 ABG Base Excess 3 (-2.0-2.0) H 05/18/18 04:39 Mann Test + 05/18/18 04:39 O2 Delivery Device Nc 05/18/18 04:39 Oxygen Liter Flow 2.50 05/18/18 04:39 FiO2 % 30.0 % 05/18/18 04:39 Sodium 135 mmol/L (136-145) L 05/18/18 04:30 Potassium 3.1 mmol/L (3.5-5.1) L 05/18/18 04:30 Chloride 100 mmol/L (98-107) 05/18/18 04:30 Carbon Dioxide 27 mmol/L (23-31) 05/18/18 04:30 Anion Gap 11.1 05/18/18 04:30 BUN 14 mg/dL (7-18) 05/18/18 04:30 Creatinine 1.16 mg/dL (0.60-1.10) H 05/18/18 04:30 Estimated GFR (MDRD) 62.00 mL/min 05/18/18 04:30 BUN/Creatinine Ratio 12.06 05/18/18 04:30 Glucose 89 mg/dL (82-115) 05/18/18 04:30 Hemoglobin A1c 4.8 (4.8-6.0) 05/17/18 16:00 Lactic Acid 39.7 mg/dL (4.5-19.8) H 05/17/18 11:52 Calcium 8.2 mg/dL (8.2-10.2) 05/18/18 04:30 Magnesium 1.8 mg/dL (1.7-2.2) 05/17/18 16:00 Total Bilirubin 1.6 mg/dL (0.00-1.20) H 05/18/18 04:30 AST 80 U/L (15-37) H 05/18/18 04:30 ALT 27 U/L (12-78) 05/18/18 04:30 Alkaline Phosphatase 67 U/L (56-119) 05/18/18 04:30 Total Creatine Kinase 851 U/L 05/18/18 04:30 CK-MB (CK-2) 21.9 ng/ml (0.0-3.6) H* 05/18/18 04:30 CK-MB (CK-2) % 2.00037 05/18/18 04:30 Troponin I < 0.0100 ng/ml (0.0000-0.4000) 05/17/18 16:00 Total Protein 6.2 g/dL (5.8-8.1) 05/18/18 04:30 Albumin 2.3 g/dL (3.4-5.0) L 05/18/18 04:30 Globulin 3.9 05/18/18 04:30 Albumin/Globulin Ratio 0.59 05/18/18 04:30 Procalcitonin 4.16 ng/mL (<0.05) 05/17/18 11:52 TSH 43.102 uIU/L (0.3400-4.8200) H 05/17/18 16:00 Free T4 < 0.40 ng/dL (0.59-1.17) L 05/17/18 16:00 Urine Color Yellow (YELLOW) 05/17/18 12:02 Urine Clarity Clear (CLEAR) 05/17/18 12:02 Urine pH 6.0 (5-9) 05/17/18 12:02 Ur Specific [place] 1.020 (1.005-1.030) 05/17/18 12:02 Urine Protein 1+ (NEGATIVE) 05/17/18 12:02 Urine Glucose (UA) Trace (NEGATIVE) 05/17/18 12:02 Urine Ketones 1+ (NEGATIVE) 05/17/18 12:02 Urine Blood 1+ (NEGATIVE) 05/17/18 12:02 Urine Nitrite Negative (NEGATIVE) 05/17/18 12:02 Urine Bilirubin 1+ (NEGATIVE) 05/17/18 12:02 Urine Urobilinogen 0.2 (0.2) 05/17/18 12:02 Ur Leukocyte Esterase Negative (NEGATIVE) 05/17/18 12:02 Urine Microscopic RBC 0-2 (0-2) 05/17/18 12:02 Ur Squamous Epith Cells Not present (0-5) 05/17/18 12:02 Urine Opiates Screen Negative (NEGATIVE) 05/17/18 12:02 Ur Oxycodone Screen Negative (NEGATIVE) 05/17/18 12:02 Urine Methadone Screen Negative (NEGATIVE) 05/17/18 12:02 Ur Propoxyphene Screen Negative (NEGATIVE) 05/17/18 12:02 Ur Barbiturates Screen Negative (NEGATIVE) 05/17/18 12:02 U Tricyclic Antidepress Negative (NEGATIVE) 05/17/18 12:02 Ur Phencyclidine Scrn Negative (NEGATIVE) 05/17/18 12:02 Ur Amphetamine Screen Negative (NEGATIVE) 05/17/18 12:02 U Methamphetamines Scrn Negative (NEGATIVE) 05/17/18 12:02 U Benzodiazepines Scrn Negative (NEGATIVE) 05/17/18 12:02 Urine Cocaine Screen Negative (NEGATIVE) 05/17/18 12:02 U Cannabinoids Screen Negative (NEGATIVE) 05/17/18 12:02 Plasma/Serum Alcohol < 10.0 mg/dL (0.0-80.0) 05/17/18 11:52 CPK/Troponin I Trends 05/17/18 05/17/18 05/18/18 Range/Units 11:52 16:00 04:30 Total Creatine Kinase 1025 916 851 U/L CK-MB (CK-2) 26.4 H* 27.3 H* 21.9 H* (0.0-3.6) ng/ml CK-MB (CK-2) % 2.91432 2.97635 2.04453 Troponin I < 0.0100 < 0.0100 (0.0000-0.4000) ng/ml Na/K Trends 05/17/18 05/17/18 05/18/18 Range/Units 11:52 16:00 04:30 Sodium 132 L 133 L 135 L (136-145) mmol/L Potassium 2.9 L 3.5 3.1 L (3.5-5.1) mmol/L H/H Trends 05/17/18 05/17/18 05/18/18 Range/Units 11:52 16:00 04:30 Hgb 13.1 L 11.4 L 11.3 L (14.0-18.0) g/dl Hct 39.2 L 33.8 L 33.8 L (42.0-52.0) % MICROBIOLOGY: Urine culture no growth Blood culture no growth Imaging: NO NEW STUDIES> (1) SIRS (systemic inflammatory response syndrome) Status: Resolved Code(s): R65.10 - SIRS OF NON-INFECTIOUS ORIGIN W/O ACUTE ORGAN DYSFUNCTION SNOMED Code(s): 134751928 (2) Acidosis Status: Resolved Code(s): E87.2 - ACIDOSIS SNOMED Code(s): 81644914 (3) Acquired hypothyroidism Status: Chronic Code(s): E03.9 - HYPOTHYROIDISM, UNSPECIFIED SNOMED Code(s) : 777718370 (4) Hyponatremia Status: Resolved Code(s): E87.1 - HYPO-OSMOLALITY AND HYPONATREMIA SNOMED Code(s): 01300127 (5) Hypokalemia Status: Chronic Code(s): E87.6 - HYPOKALEMIA SNOMED Code(s): 89984411 (6) Encephalopathy Status: Resolved Code(s): G93.40 - ENCEPHALOPATHY, UNSPECIFIED SNOMED Code(s ): 21488878 (7) Sepsis Status: Acute Code(s): A41.9 - SEPSIS, UNSPECIFIED ORGANISM SNOMED Code(s): 76018583 (8) Diabetes mellitus with hemoglobin A1c goal of 7.0%-8.0% Status: Chronic Code(s): E11.9 - TYPE 2 DIABETES MELLITUS WITHOUT COMPLICATIONS SNOMED Code(s): 938824353 (9) Elevated CK-MB level Status: Acute Code(s): R74.8 - ABNORMAL LEVELS OF OTHER SERUM ENZYMES SNOMED Code(s): 961927882 (10) Chronic venous stasis Status: Chronic Code(s): I87.8 - OTHER SPECIFIED DISORDERS OF VEINS SNOMED Code(s): 14443214 (11) Leukocytosis Status: Acute Code(s): D72.829 - ELEVATED WHITE BLOOD CELL COUNT, UNSPECIFIED SNOMED Code(s): 701739705 (12) Thrombocytopenia Status: Chronic Code(s): D69.6 - THROMBOCYTOPENIA, UNSPECIFIED SNOMED Code(s ): 702696388 (13) Elevated parathyroid hormone Status: Chronic Code(s): E34.9 - ENDOCRINE DISORDER, UNSPECIFIED SNOMED Code (s): 6264666 (14) Low vitamin D level Status: Chronic Code(s): R79.89 - OTHER SPECIFIED ABNORMAL FINDINGS OF BLOOD CHEMISTRY SNOMED Code(s): 422905873 (15) BMI 31.0-31.9,adult Status: Acute Code(s): Z68.31 - BODY MASS INDEX (BMI) 31.0-31.9, ADULT SNOMED Code(s): 133766245 (16) Smokes 1 pack of cigarettes per day Status: Acute Code(s): F17.210 - NICOTINE DEPENDENCE, CIGARETTES, UNCOMPLICATED SNOMED Code(s): 34215033 Plan: CHARLINE: Baseline creatinine from last 1-1.5 based on available data. He is following with Dr. Kowalski, this is a chronic problem. Creatinine this am was 1.16 up a little from 1.05 last evaluation but markedly better from admit. Improving. Monitor for now. Continue fluid replacement. Goal weight ~205. Still oliguric and thus we will increase fluids. - CMP in am SIRS: Vitals are much better, temp is more normal, tele showed good HR, BP is still low and we are working on fluid replacement. On abx to cover ?pneumonia, ?wound infection of legs. ABG is much better this am and he is now normal pH. - Await blood/urine cultures Oliguria/Dehydration: He has become much more talkative today, he has last weight reported to me to be about 206. Thus he is down 7-8 lb. He has had 400 total output with 200 in last 8 hours with uout of <0.5ml/kg/hour. We will increase fluids until he can get to that value and we are shooting for a goal weight of around 204-207. He has been using bumetanide 2x daily, he remembers now trying to get up and felt like he was going to pass out so he sat down and slid from chair. CKMB was elevated, now peaked. I will change his fluid from D5 containing to NS, bolus him with 250ml now and then increase fluids to 150/ hour which is just under 1.5x maintenance. [place] weight ~146lb. - Fluids changed from D5 containing to NS +K today - 250 ml bolus - fluids increased from 110 per hour to 150 per hour. - Daily weight - I+O q shift. - Repeat UA today. Abnl CT chest: ?Pneumonia. 5 days of abx should be sufficient. Similar CXR 2017. Cefepime/Azithromycin should cover him. Abnl CT abd: Plain film today. Passing gas. On miralax. He feels fine, no abd pain, normal sounds. - KUB today. Pain: Generalized aches/pains. We will resume his norco. -[place] 10 QID as per normal dosing Hypokalemia: I will stop the D5 containing fluid as this can worsen the hypokalemia. I will change this to NS +20 K at rate of 150/hr x 12 hours. - Stop D5 fluids - Change to NS + K Acquired Hypothyroid: He is following with Endocrinology, resume normal home meds. Thrombocytopenia: Appears chronic with 88 03/20/18. 163, 89, 70 over last 24 hours. He was dehydrated. He has not had any recent heparin per his report. he has had >10,000 point drop in last day but I would use his baseline of 88 instead of the 163 as he was markedly dehydrated/hemoconcentrated. I examined the 4T pretest probability and found him to have 1 point for platelet drop. 0 points as fall was within 4 days and no recent exposure. 1 point for possible other causes for the thrombocytopenia and no active/known thrombus. Pretest proability <1%. With a low probability HIT abs not helpful. I will order iron studies, however. Would consider f/u with hematology as outpatient. Also check smear. Continue dvt prophy and plavix as plt >50,000. Monitor. - Iron/TIBC/Ferritin - peripheral smear to eval for clumping. 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 Following with Endocrinology. CT chest did not show any s/sx of lung cancer. He is now not hyponatremic so we will continue to monitor this. DM: Last A1C 4.8 and fine. He had a regular diet this am. Add accuchecks, not on meds for now, monitor. - Diet to diabetic diet. DVT Prophy: We will continue lovenox for now. JENNY/SCD concerning with his chronic leg wounds. Pulses better today. Activity: Fitzgerald in place, being rolled/positioned by nursing regularly. Candidal intertrigo: On Nystatin, continue. Diet: Was ordered as regular, breakfast was regularl. Change to 2000 kcal/ADA. - 2000 kcal ADA BMI 31: Monitor. Tobacco: Tobacco Cessation discussed today for 2 minutes. We reviewed lifestyle choices and discussed quitting. Ready to quit status discussed. The risks and hazards of continued tobacco abuse were discussed with the patient today and total tobacco cessation as recommended. It was clearly and unambiguously explained that continued tobacco usage will adversely affect overall morbidity and mortality of the patient. Patient was informed that tobacco use can lead to numerous cancers, worsening of cardiovascular and pulmonary systems and that lung damage is often permanent and irreversible. I advised the patient to inform me if any further assistance is requested, as we can offer counseling services, nicotine replacement inhaled, patch, lozenge, gum , or prescription medications to include Chantix or Wellbutrin for assistance. I will reassess the interest in tobacco cessation at the next and all subsequent visits. Disposition: At this time the patient is improving. >35 minutes spent in evaluation of patient today, not to include charting time. Reviewed tele, reviewed imaging (no new), reviewed labs, talked with nursing, reviewed ON documents. Tetanus up to date. He is passing gas, urine output is present but oliguric and fluids will be changed as above. Still on abx for ?pneumonia on CT chest. We will repeat KUB today, await cultures. If all negative, stop vanco , continue 5 days of cephalosporin/zithromax, get him to see his PCP this week for routine f/u of all of the above problems. BP is still low, bolus 250 now increase fluids to 150/hour. We will watch urine output with goal of 0.5-0.8ml/ kg/hour and body weight of ~205lb. We will watch his platelets, if these continue to drop, we may need to change Lovenox to Fondaparineux.
[2018-05-18] MEDS ORDERED: NORCO 10-325 PO PRN (08:32)
[2018-05-18] MEDS ORDERED: SODIUM CHLORIDE 250 ML IV ONE (08:52)
[2018-05-18] MEDS ORDERED: NON-FORMULARY MEDICATION (Atorvastatin Calcium [Lipitor] 80 MG) PO SCH (09:00)
[2018-05-18] MEDS ORDERED: VANCOMYCIN 1 GM in SODIUM CHLORIDE 250 ML IV SCH (09:00)
[2018-05-18] MEDS ORDERED: POLYETHYLENE GLYCOL PO SCH (09:00)
[2018-05-18] MEDS ORDERED: NON-FORMULARY MEDICATION (Levothyroxine Sodium [Levothyroxine Sodium] 125 MCG) PO SCH (09:00)
[2018-05-18] MEDS: MAXIPIME 2 GM in SODIUM CHLORIDE 100 ML IV SCH ×2 (09:02→20:38)
[2018-05-18] MEDS ORDERED: SODIUM CHLORIDE 50 ML IV ONE (09:02)
[2018-05-18] MEDS: NYSTOP POWDER TP SCH ×3 (09:05→20:59)
[2018-05-18] MEDS: COLCRYS PO SCH (09:06)
[2018-05-18] MEDS: PLAVIX PO SCH (09:06)
[2018-05-18] MEDS: FLOMAX PO SCH (09:06)
[2018-05-18] MEDS: LIPITOR PO SCH (09:06)
[2018-05-18] MEDS: SYNTHROID PO SCH ×4 (09:06→09:43)
[2018-05-18] MEDS: LOVENOX SUBCUT SCH (09:07)
[2018-05-18] MEDS: MIRALAX PO SCH (09:07)
[2018-05-18] MEDS: CALCITRIOL 0.25 MCG PO SCH (09:07)
[2018-05-18] MEDS: NON-FORMULARY MEDICATION (Bupropion Hcl [Wellbutrin Sr] 150 MG) PO SCH ×2 (09:07→20:59)
[2018-05-18] MEDS: MYCOLOG TP SCH ×3 (09:09→20:59)
[2018-05-18] MEDS: ZITHROMAX 500 MG in SODIUM CHLORIDE 250 ML IV SCH (10:10)
--- NOTE | 2018-05-18 11:28 | DI ---
Exam: KUB. HISTORY: Abdomen pain. Follow up abnormal CT. COMPARISON: CT dated 05/17/2018. FINDINGS: A frontal view of the abdomen and pelvis on three images bibasilar atelectasis is seen, le ft greater than right.. There is mild gaseous distension of the stomach.. Gas and stool is seen thro ughout the colon and into the rectum. There are no dilated loops of small bowel to suggest a small b owel obstruction. There are no abnormal masses or calcifications. The osseous structures are normal for age. Impression: 1. Nonobstructive bowel gas pattern. 2. Bibasilar atelectasis. Pneumonia cannot be excluded.
[2018-05-18] MEDS: VANCOMYCIN 1 GM in SODIUM CHLORIDE 250 ML IV SCH ×2 (12:16→21:53)
[2018-05-18] MEDS: SODIUM CHLORIDE 0.9%-KCL 20 MEQ 1,000 ML IV SCH ×2 (17:28→21:53)
[2018-05-18] MEDS ORDERED: LANTUS SUBCUT STA (21:28)
[2018-05-18] MEDS ORDERED: HUMALOG SUBCUT STA (21:28)
[2018-05-19 02:50] VITALS: TEMP 97.6
[2018-05-19] MEDS: DUONEB NEB SCH (04:25)
[2018-05-19] MEDS: SYNTHROID PO SCH ×2 (05:35)
--- NOTE | 2018-05-19 05:41 | CT ---
EXAM: CT chest without intravenous contrast 05/19/2018. Sagittal and coronal reformatted images obt ained HISTORY: Hypoxia COMPARISON: 05/17/2018 FINDINGS: Bilateral symmetric gynecomastia. Moderate cardiomegaly. No pericardial effusion. Ather osclerotic vascular disease. Small right and trace left pleural effusion. Consolidation throughout both lungs. This is most severe within the dependent portion of the chest. These findings may represent a combination of atelectasis, edema and pneumonia. These findings have w orsened since the prior examination. No acute osseous abnormality. IMPRESSION: 1. Stable cardiomegaly. 2. Small right and trace left pleural effusion 3. Patchy areas of consolidation throughout both lungs. This has worsened since the prior study. T he findings may relate to a combination of atelectasis, edema and/or pneumonia. 4. Symmetric bilateral gynecomastia.
[2018-05-19] MEDS ORDERED: LASIX IVP STA (07:22)
[2018-05-19] MEDS ORDERED: D5%-NS-KCL 20 MEQ/L IV SOL 1,000 ML IV SCH (07:30)
--- NOTE | 2018-05-19 07:30 | PCM.DC ---
Final Diagnosis: SIRS/Sepsis Dehydration DM A1C goal 7-8%: A1C 4.8 in hospital Hypokalemia (Chronic) Leukocytosis (Resolved) Elevated CK-MB (Improving) Chronic Venous stasis/Dermatitis/Sores (Chronic): Chronic wound care Chronic hypothyroidism Elevated PTH with low Vitamin D Thrombocytopenia (Chronic problem): Last Labs 03/2018 Bita 88. Still >50k in hospital. Smokes 1 pack of cigarettes per day (Acute) Pulmonary Edema Oliguria CT scan Chest 05/17/18 suggesting pneumonia on cefepime and azithromycin CT abdomen 05/17/18 suggesting SBO: KUB 05/18/18 negative, non obstructive. (1) SIRS (systemic inflammatory response syndrome) Status: Resolved Code(s): R65.10 - SIRS OF NON-INFECTIOUS ORIGIN W/O ACUTE ORGAN DYSFUNCTION SNOMED Code(s): 956044426 (2) Acidosis Status: Resolved Code(s): E87.2 - ACIDOSIS SNOMED Code(s): 42930826 (3) Acquired hypothyroidism Status: Chronic Code(s): E03.9 - HYPOTHYROIDISM, UNSPECIFIED SNOMED Code(s) : 097675936 (4) Hyponatremia Status: Resolved Code(s): E87.1 - HYPO-OSMOLALITY AND HYPONATREMIA SNOMED Code(s): 90763553 (5) Hypokalemia Status: Chronic Code(s): E87.6 - HYPOKALEMIA SNOMED Code(s): 24587898 (6) Encephalopathy Status: Resolved Code(s): G93.40 - ENCEPHALOPATHY, UNSPECIFIED SNOMED Code(s ): 02408895 (7) Sepsis Status: Acute Code(s): A41.9 - SEPSIS, UNSPECIFIED ORGANISM SNOMED Code(s): 39094097 Qualifiers: Sepsis type: sepsis due to unspecified organism Qualified Code(s): A41.9 - Sepsis, unspecified organism (8) Diabetes mellitus with hemoglobin A1c goal of 7.0%-8.0% Status: Chronic Code(s): E11.9 - TYPE 2 DIABETES MELLITUS WITHOUT COMPLICATIONS SNOMED Code(s): 635890185, 333962025 (9) Elevated CK-MB level Status: Acute Code(s): R74.8 - ABNORMAL LEVELS OF OTHER SERUM ENZYMES SNOMED Code(s): 246879101 (10) Chronic venous stasis Status: Chronic Code(s): I87.8 - OTHER SPECIFIED DISORDERS OF VEINS SNOMED Code(s): 33261119 (11) Leukocytosis Status: Acute Code(s): D72.829 - ELEVATED WHITE BLOOD CELL COUNT, UNSPECIFIED SNOMED Code(s): 284052051, 793291823 (12) Thrombocytopenia Status: Chronic Code(s): D69.6 - THROMBOCYTOPENIA, UNSPECIFIED SNOMED Code(s ): 881492247 (13) Elevated parathyroid hormone Status: Chronic Code(s): E34.9 - ENDOCRINE DISORDER, UNSPECIFIED SNOMED Code (s): 7943905, 4087697, 693566065, 121335391 (14) Low vitamin D level Status: Chronic Code(s): R79.89 - OTHER SPECIFIED ABNORMAL FINDINGS OF BLOOD CHEMISTRY SNOMED Code(s): 399180284 (15) BMI 31.0-31.9,adult Status: Acute Code(s): Z68.31 - BODY MASS INDEX (BMI) 31.0-31.9, ADULT SNOMED Code(s): 043234833 (16) Smokes 1 pack of cigarettes per day Status: Acute Code(s): F17.210 - NICOTINE DEPENDENCE, CIGARETTES, UNCOMPLICATED SNOMED Code(s): 45311561 Reason for Hospitalization: 1. Encephalopathy, found down, unknown duration. 2. Elevated CKMB/CK 3. CHARLINE on CKD 4. Generalized Debility 5. Chronic leg wounds concerning for cellulitis (ON VANCO) 6. Concern for Pneumonia on CT Chest 05/17/18 On Cefepime and Azithromycin Prognosis at Discharge: Guarded: Transfer to [facility] for further assistance. He came into hospital 8 lb under weight and gentle hydration yesterday did improve weight but did not improve renal function. Patient now back to pre hospitalized weight , worsening infiltrates on CT chest. He had an event overnight where sats dropped into 40's despite 3L NC. He was placed on Venti mask and increased to 91%. He was talking throughout this process, telemetry no concerning rhythms and glucose was 171. He did have an elevation of glucose last night to 473, I gave 10 units of lantus and 4 of humalog. Sugar dropped and stayed down. He was okay remainder of yesterday, okay this am. 72 yr old Male with CKD, COPD, Condition at Discharge: Stable on venti Mask O2 >90%. Dietrich catheter in place. He is sitting on bedside, removing mask. Glucose stable, BP stable, vitals in general stable. CT worsening infiltrates. Medications at Discharge: Ambulatory Orders Medication Instructions Recorded Atorvastatin Calcium [Lipitor] 80 mg PO DAILY 04/26/13 Clopidogrel Bisulfate [Plavix] 75 mg PO DAILY 02/13/17 Colchicine 0.6 mg PO DAILY 02/13/17 Ipratropium/Albuterol Sulfate 1 spray IH QID 02/13/17 [Combivent Respimat Inhal [place]] Tamsulosin HCl [Flomax] 0.4 mg PO DAILY 02/13/17 Bumetanide 0.5 mg PO BEDTIME 05/13/17 Gabapentin 300 mg PO BID 08/22/17 Bumetanide 1 mg PO BID 10/15/17 Bupropion HCl [Wellbutrin Sr] 150 mg PO BID 10/15/17 Calcitriol [Rocaltrol] 0.25 mcg PO DAILY 10/15/17 Blood Sugar Diagnostic [Glucose 1 each MC TID strip 10/16/17 Test Strip] Hydrocodone/Acetaminophen 1 each PO QID 10/16/17 [Hydrocodone-Acetamin 10-325 Mg] Ipratropium/Albuterol Sulfate 20 - 100 mcg IH QID #1 ih 10/16/17 [Combivent Respimat Inhal [place]] Lancets [Micro Thin Lancets] 1 each MC TID #1 each 10/16/17 Levothyroxine Sodium 125 mcg PO DAILY 10/16/17 Nitroglycerin 4 mg SL PRN 10/16/17 Nystatin/Triamcin 15 gm TP BID 10/16/17 [Nystatin-Triamcinolone Cream] Parab/Cet Alc/Stryl Alc/Pg/Sls 473 ml TP DAILY PRN 10/16/17 [Gentle Skin Cleanser] Polyethylene Glycol 3350 [Glycolax] 527 gm PO DAILY powder 10/16/17 Med Rec attempted, PCP office closed over holiday weekend, pharmacy closed over holiday weekend. Patient unable to discuss meds. This was pieced together from previous med lists. Lab/Diagnostics: Laboratory Last Values WBC 8.39 K/ul (4.2-10.2) 05/19/18 05:01 RBC 3.51 10^6/ul (4.70-6.10) L 05/19/18 05:01 Hgb 10.2 g/dl (14.0-18.0) L 05/19/18 05:01 Hct 31.0 % (42.0-52.0) L 05/19/18 05:01 MCV 88.3 fl (80.0-94.0) 05/19/18 05:01 MCH 29.1 pg (27.0-31.0) 05/19/18 05:01 MCHC 32.9 (31.8-35.4) 05/19/18 05:01 RDW Coeff of Alen 15.9 % (11.6-14.8) H 05/19/18 05:01 Plt Count 67 10^3/uL (140-440) L 05/19/18 05:01 Immature Gran % (Auto) 1.0 % (0.0-5.0) 05/19/18 05:01 Neut % (Auto) 77.7 05/19/18 05:01 Lymph % (Auto) 15.6 (10.0-50.0) 05/19/18 05:01 [place] % (Auto) 4.6 (0-10) 05/19/18 05:01 Eos % (Auto) 0.7 % (0.0-7.0) 05/19/18 05:01 Baso % (Auto) 0.4 % (0.0-3.0) 05/19/18 05:01 Immature Gran # (Auto) 0.1 (0.0-1.0) 05/19/18 05:01 Neut # (Auto) 6.5 K/ul (2.0-6.9) 05/19/18 05:01 Lymph # (Auto) 1.3 K/uL (0.60-3.4) 05/19/18 05:01 [place] # (Auto) 0.4 K/uL (0.4-2.0) 05/19/18 05:01 Eos # (Auto) 0.1 K/ul (0.0-0.7) 05/19/18 05:01 Baso # (Auto) 0.0 K/uL (0-0.2) 05/19/18 05:01 Puncture Site Lrad 05/18/18 04:39 O2 Saturation 99.0 % (95-100) 05/18/18 04:39 ABG pH 7.409 (7.35-7.45) 05/18/18 04:39 ABG pCO2 43.2 mmHg (35-45) 05/18/18 04:39 ABG pO2 129.0 mmHg (85-100) H 05/18/18 04:39 ABG HCO3 27.3 (22.0-26.0) H 05/18/18 04:39 ABG Total CO2 29 (22.0-28.0) H 05/18/18 04:39 ABG Base Excess 3 (-2.0-2.0) H 05/18/18 04:39 Mann Test + 05/18/18 04:39 O2 Delivery Device Nc 05/18/18 04:39 Oxygen Liter Flow 2.50 05/18/18 04:39 FiO2 % 30.0 % 05/18/18 04:39 Sodium 134 mmol/L (136-145) L 05/19/18 05:01 Potassium 3.3 mmol/L (3.5-5.1) L 05/19/18 05:01 Chloride 104 mmol/L (98-107) 05/19/18 05:01 Carbon Dioxide 26 mmol/L (23-31) 05/19/18 05:01 Anion Gap 7.3 05/19/18 05:01 BUN 12 mg/dL (7-18) 05/19/18 05:01 Creatinine 1.10 mg/dL (0.60-1.10) 05/19/18 05:01 Estimated GFR (MDRD) 66.00 mL/min 05/19/18 05:01 BUN/Creatinine Ratio 10.90 05/19/18 05:01 Glucose 150 mg/dL (82-115) H 05/19/18 05:01 Hemoglobin A1c 4.8 (4.8-6.0) 05/17/18 16:00 Lactic Acid 39.7 mg/dL (4.5-19.8) H 05/17/18 11:52 Calcium 7.7 mg/dL (8.2-10.2) L 05/19/18 05:01 Magnesium 1.8 mg/dL (1.7-2.2) 05/17/18 16:00 Iron 81 ug/dL (65-175) 05/19/18 05:01 TIBC 164 ug/dL (240-450) L 05/19/18 05:01 % Saturation 49 % 05/19/18 05:01 Unsat Iron Binding 83 ug/dL (69-240) 05/19/18 05:01 Ferritin 535.49 ng/mL (21.81-274.66) H 05/19/18 05:01 Total Bilirubin 0.9 mg/dL (0.00-1.20) 05/19/18 05:01 AST 67 U/L (15-37) H 05/19/18 05:01 ALT 26 U/L (12-78) 05/19/18 05:01 Alkaline Phosphatase 60 U/L (56-119) 05/19/18 05:01 Total Creatine Kinase 851 U/L 05/18/18 04:30 CK-MB (CK-2) 21.9 ng/ml (0.0-3.6) H* 05/18/18 04:30 CK-MB (CK-2) % 2.14009 05/18/18 04:30 Troponin I < 0.0100 ng/ml (0.0000-0.4000) 05/17/18 16:00 Total Protein 5.7 g/dL (5.8-8.1) L 05/19/18 05:01 Albumin 2.1 g/dL (3.4-5.0) L 05/19/18 05:01 Globulin 3.6 05/19/18 05:01 Albumin/Globulin Ratio 0.58 05/19/18 05:01 Procalcitonin 4.16 ng/mL (<0.05) 05/17/18 11:52 TSH 43.102 uIU/L (0.3400-4.8200) H 05/17/18 16:00 Free T4 < 0.40 ng/dL (0.59-1.17) L 05/17/18 16:00 Urine Color Yellow (YELLOW) 05/19/18 06:34 Urine Clarity Cloudy (CLEAR) 05/19/18 06:34 Urine pH 5.5 (5-9) 05/19/18 06:34 Ur Specific [place] >=1.030 (1.005-1.030) 05/19/18 06:34 Urine Protein 2+ (NEGATIVE) 05/19/18 06:34 Urine Glucose (UA) 1+ (NEGATIVE) 05/19/18 06:34 Urine Ketones Negative (NEGATIVE) 05/19/18 06:34 Urine Blood 3+ (NEGATIVE) 05/19/18 06:34 Urine Nitrite Negative (NEGATIVE) 05/19/18 06:34 Urine Bilirubin Negative (NEGATIVE) 05/19/18 06:34 Urine Urobilinogen 0.2 (0.2) 05/19/18 06:34 Ur Leukocyte Esterase Trace (NEGATIVE) 05/19/18 06:34 Urine Microscopic RBC 50-100 (0-2) 05/19/18 06:34 Urine Microscopic WBC 0-2 (0-2) 05/19/18 06:34 Ur Squamous Epith Cells 0-2 (0-5) 05/19/18 06:34 Amorphous Sediment 1+ (NOT PRESENT) 05/19/18 06:34 Urine Bacteria 1+ (NOT PRESENT) 05/19/18 06:34 Granular Casts 0-2 (NOT PRESENT) 05/19/18 06:34 Urine Opiates Screen Negative (NEGATIVE) 05/17/18 12:02 Ur Oxycodone Screen Negative (NEGATIVE) 05/17/18 12:02 Urine Methadone Screen Negative (NEGATIVE) 05/17/18 12:02 Ur Propoxyphene Screen Negative (NEGATIVE) 05/17/18 12:02 Ur Barbiturates Screen Negative (NEGATIVE) 05/17/18 12:02 U Tricyclic Antidepress Negative (NEGATIVE) 05/17/18 12:02 Ur Phencyclidine Scrn Negative (NEGATIVE) 05/17/18 12:02 Ur Amphetamine Screen Negative (NEGATIVE) 05/17/18 12:02 U Methamphetamines Scrn Negative (NEGATIVE) 05/17/18 12:02 U Benzodiazepines Scrn Negative (NEGATIVE) 05/17/18 12:02 Urine Cocaine Screen Negative (NEGATIVE) 05/17/18 12:02 U Cannabinoids Screen Negative (NEGATIVE) 05/17/18 12:02 Plasma/Serum Alcohol < 10.0 mg/dL (0.0-80.0) 05/17/18 11:52 Miscellaneous Test Sent to [facility] 05/18/18 09:12 MISC= PERIPHERAL BLOOD SMEAR CPK/Troponin I Trends 05/17/18 05/17/18 05/18/18 Range/Units 11:52 16:00 04:30 Total Creatine Kinase 1025 916 851 U/L CK-MB (CK-2) 26.4 H* 27.3 H* 21.9 H* (0.0-3.6) ng/ml CK-MB (CK-2) % 2.06445 2.60762 2.89228 Troponin I < 0.0100 < 0.0100 (0.0000-0.4000) ng/ml H/H Trends 05/17/18 05/17/18 05/18/18 Range/Units 11:52 16:00 04:30 Hgb 13.1 L 11.4 L 11.3 L (14.0-18.0) g/dl Hct 39.2 L 33.8 L 33.8 L (42.0-52.0) % 05/19/18 Range/Units 05:01 Hgb 10.2 L (14.0-18.0) g/dl Hct 31.0 L (42.0-52.0) % WBC Trends 05/17/18 05/17/18 05/18/18 Range/Units 11:52 16:00 04:30 WBC 25.43 H 18.47 H D 11.61 H D (4.2-10.2) K/ul 05/19/18 Range/Units 05:01 WBC 8.39 (4.2-10.2) K/ul Na/K Trends 05/17/18 05/17/18 05/18/18 Range/Units 11:52 16:00 04:30 Sodium 132 L 133 L 135 L (136-145) mmol/L Potassium 2.9 L 3.5 3.1 L (3.5-5.1) mmol/L 05/19/18 Range/Units 05:01 Sodium 134 L (136-145) mmol/L Potassium 3.3 L (3.5-5.1) mmol/L Platelet: 169, 83, 70, 67 (this am) ON LOVENOX dropped over day 1 to 2, no recent heparin. , PERIPHERAL BLOOD SMEAR: PENDING SENT TO [facility] ABG1: Acute (uncompensated) primary respiratory acidosis, with metabolic acidosis ABG #2: 12:45 PM 05/17/18 Acute (uncompensated) primary respiratory acidosis ABG #3: 05/18/18 normalized PH. Cultures: Urine Culture negative x 24 hours Blood Culture negative x 24 hours Imaging: CT Head 05/17/18: Negative for acute process/bleed. CT abd: 05/17/18 Mildly distended loops of small bowel within the anterior abdomen probably related to ileus or enteritis. Early partial small bowel obstruction is not exluded. Plain film in 24 hr recommended. Dietrich in bladder, bibasilar pneumonia (SIMILAR TO CXR in our system). CT chest: ?Bibasilar pneumonia, CAD, infiltrates throughout (Similar to CXR seen 10/2017). KUB 05/18/18: Non obstructive gas pattern CT Chest 05/19/18: Worsening interstitial pattern patchy areas of consolidation throughhout both lungs, worsened since prior study, findings relate to combination of atelectasis, edema and or pneumonia. Symmetrical gynecomastia, stable cardiomegaly. Education Provided to Patient and Family: 1. Need to f/u with PCP and with Endocrinology to further evaluate the chronic medical problems. 2. Transfer to [facility] for renal failure and pulmonary edema. Follow-ups: 1. Transfer to [facility] via ambulance. 2. O2 w/ mask to titrate to >90%. 3. Dietrich in place. 4. Chronic wounds bilateral legs. Disposition: TSF OTHER Hospital Course: 72 yr old CM presented to [facility] on 05/17/18 brought by EMS with acutely altered mental status. The patient normal provider is Claudia Olea, Dr. Kowalski nephrology and Dr. Tarango endocrinology. LIves alone w/ cat. Family friend concerned about him, checked on him and found down, called EMS. Temperature below 96.8 (was 91.3 upon arrival) improved to 94 degrees in ER , pulse was 113 and improved to 77. Resp rate up to 22 and he had altered mental status. He met criteria for SIRS. Was initially unresponsive so brought to ER. He was responsive/lethargic, weak. Similar episodes occurred previously. Malaise, weakness, decreased PO intake, cognitive dysfunction, weakness, taking diuretic, not consuming liquids. History of DM2, hypothyroid, dyslipidemia, CAD , History of MA, HTN, CHF, A-fib, COPD, asthma, anemia, GERD, CKD, Anxiety, Elevated PTH w/ Low Vit D, history of chronic thrombocytopenia, depression, chronic back pain. Numerous comorbidities. Exam in ER moderately ill appearing , patent airway, no murmur, normal rate/rhythm. Strength normal. Neurologically intact. EKG was normal sinus 13:57. Re-evaluated at 13:57 by ER , no active disease, lungs clear, warm and dry skin, CV RRR. Contacted me at 1400. Patient seen by me 15:30. WBC noted to be 25.43, Hgb 13.1, plt 169. Sodium 132, K+ 2.9, CL 94, CR 1.30, and BUN 17 with glucose 134. CBC with neutrophil predominance. ABC 7.124 pH, pc02 71.9, p02 81, hc03 23.6, -6 base excess, mann +. Taken on NRBM. ABG supported Acute uncompensated primary resp acid with metabolic acid as well. Mildly large anion gap of just under 16. Sodium is mildly low, likely chornically at 132, K+ dficiency 2.9. Cr 1.30. Glucose 134. Calcium normal 9.0. NO magnesium was checked. AST elevated 91. CK elevated at 1025, CKMB 26.4 but Troponin normal. Dehydration with some early/rhabdo possible. Albumin low at 2.5. ETOH was negative. Lactic acid elevated at 39.7. procalcitonin 4.16. Urine 1+ protein, 1+ ketones, 1+ blood, 1+ bili, 0.2 uro 0-2 microscopic RBC. Repeat ABG respiratory acidosis persisted, but metabolic process improved, PH improving. FIo2 50 on bipap. UDS completed and negative. He was given fluids 100 mls/hr K+CL D5 NS +20 K+. Vanco started, Bolus 1 L NS in ER. Septic, acidotic, encephalopathic, improved some with fluids and he was accepted by me. Allergic to contrast dye. Patient seen in SCU-2. He is unable to provide much history, very hard of hearing. He has had issues historically trying to dig out hearing aid components. The patient was mildly confused. He noted that he was sitting in his chair and slid out. He knows it was an afternoon but was unable to tell me more. He was watching TV before lunch, did not eat anything and simply slid out of his bed. Denies any history of stroke. Did not take any diabetes meds. He has had MA historically per his report x3. No chest pain at admit. He hurts all over but no worse than he has hurt historically. Chronic poor perfusion bilateral LE, Chronic wound care bilateral LE. He follows with pain management, no recent pain meds (NORCO 10 QID), patient notes he only takes them as he needs them. No memory of last dose, no memory of last BM, noted urinating fine. History of DM, I asked if he was taking any insulin, "NO THEY TOOK ME OFF THAT." I contacted , [facility], attempted to contact PCP office (closed for weekend/ holiday), contacted pharmacy (closed for weekend/holiday). He does not remember much beyond sliding out of the chair. He cannot feel below his knees bilaterally. We talked about code status. He is aware enough to know that he wants "EVERYTHING DONE." I tried to talk to him about CPR and consequences and he wanted everything done. He does not know his med list. He presented with SIRS with sepsis and concern for rhabdo. ABG are improving. He was doing better by the time I saw him. We fluid hydrated him to see if renal function improved, monitored CPK/CK and this improved and peaked/dropped. We were concern for ?Rhabdo, negative Troponin x 2. I reviewed CXR from and this showed same bilateral interstitial lung infiltrates edema vs pneumonia as seen on CT. Despite this, decision to cover for pulmonary infection and skin/peripheral infection was used with vanco/cefepime/ azithromycin. Zosyn given in ER, with issues with vanco and zosyn on renal function this was stopped. Repeated CBC/CMP/CPK overnight. Baseline Cr from our labs and previous in system suggested 1.21 as likely baseline. Chronic venous stasis, poor wound health, chronic wound care, chronic pain medications, chronic endocrinology issues with PTH and with Thyroid. K+ was low and we replaced this with fluids. Sugars stable, A1C was 4.8 and stable. TSH markedly elevated, resumed home dose of 125 mcg levothryox as we do not know if he had been taking these. He was started on lovenox, no recent heparin, plt stable initially >160K. Concern for ?SBO, repeated KUB 24 hours later no obstruction. Strict I+o daily weights. Came in ~8-10 lb under normal. Abx zithromax 500daily x 5 days to be used, cefepime 2g BID and vanco (pharm to dose) was used. We monitored renal parameters and adjsusted based on his renal status. Overnight he improved markedly 05/18/18. He was talkative, pleasant, ate meal. Legs were less pruny, less valleys/ridges and much more hydrated. REnal function improved, ckmb peaked, breathing fine on N. Chronic problems, still with oliguria, no respiratyr issues. He remained <0.5ml/kg/hour and we increasedf luids from 110ml D5 NS to 150ml/hour NS +20 K as his K+ was dropping I got rid of the dextrose. I+O monitored q shift, fluids x 12 hours increased from 110 to 150 (just below 1.5x maintenance). Gently tried to hydrate without putting him into fluid overload. Weight increased/improved. He felt better. Platelets steadily dropped. Not likely HIT as too soon. Chronic problem anyway. Hgb dropping but not to transfusion standards. On lovenox, diet changed from initial regular to diabetic. He actually was much better yesterday. Last night I was called at 9pm with BG 473. I had them give 10 of lantus and 4 humalog. Repeat sugars 30 minutes later were 173. He stayed that remainder of stay. THis am 05/19/18 04:00 o2 dropped down to 47% and he was put on Venti and his sats increased to 90 with assistance of respiratory. He has received nebs in hospital. He has received abx as listed in hospital. Despite this, he has only put out 100 ml/hour over last 3 shifts. Renal failure persists, now CT shows worsening pulmonary infiltrates atelectasis vs edema. Contacted Dr. Thomas who accepted transfer. I would request that the H+P and Progress note fro 05/19/18 be reviewed for full details of admisison. Exam today Sitting on bedside with mask in place,lungs sound much coarser than before. He is wheezing throughout. He is angry, irritable, just like he was on day 1. This seems similar to what brought him into hospital in first place. VItals stable, tele reviewed and NSR. Legs are plump and much less sunken/dehydrated. He is able to sit, he is mad that he has to be in hospital at all. Despite all this he is full code. Plan: 1. Transfer patient to [facility], Possible worsening pulmonary edema/ infiltrates. 2. >30 minutes spent with patient today in coordinating this transfer, discussing case with Dr. Avitia and discussing options with patient.
[2018-05-19] MEDS: NON-FORMULARY MEDICATION (Bupropion Hcl [Wellbutrin Sr] 150 MG) PO SCH (08:46)
[2018-05-19] MEDS: MAXIPIME 2 GM in SODIUM CHLORIDE 100 ML IV SCH (08:46)
[2018-05-19] MEDS: PLAVIX PO SCH (08:47)
[2018-05-19] MEDS: FLOMAX PO SCH (08:47)
[2018-05-19] MEDS: COLCRYS PO SCH (08:47)
[2018-05-19] MEDS: LIPITOR PO SCH (08:48)
[2018-05-19] MEDS: LOVENOX SUBCUT SCH (08:48)
[2018-05-19] MEDS: CALCITRIOL 0.25 MCG PO SCH (08:48)
[2018-05-19] MEDS: MYCOLOG TP SCH (08:50)
[2018-05-19] MEDS: MIRALAX PO SCH (08:50)
[2018-05-19] MEDS: NYSTOP POWDER TP SCH (08:50)
[2018-05-19] MEDS: VANCOMYCIN 1 GM in SODIUM CHLORIDE 250 ML IV SCH (09:41)
[2018-05-19 10:04] VITALS: BP 112/70
[2018-05-19] MEDS: ZITHROMAX 500 MG in SODIUM CHLORIDE 250 ML IV SCH (11:04)
== END 2018-05-19 10:50 | disposition short-term general hospital (02) | DRG 947 ==
LOC: ED 11:39 → SCU 13:58
PROVIDERS: ADMIT Family Medicine; ATTEND Family Medicine
DX: R53.83 Other fatigue (principal); G93.40 Encephalopathy, unspecified; A41.9 Sepsis, unspecified organism; E87.2 Acidosis; E87.1 Hypo-osmolality and hyponatremia; R65.10 Systemic inflammatory response syndrome (SIRS) of non-infectious origin without acute organ dysfunction; R53.1 Weakness; R53.81 Other malaise; R74.8 Abnormal levels of other serum enzymes; R63.0 Anorexia; R79.89 Other specified abnormal findings of blood chemistry; E03.9 Hypothyroidism, unspecified; E87.6 Hypokalemia; E11.9 Type 2 diabetes mellitus without complications; E34.9 Endocrine disorder, unspecified; I87.8 Other specified disorders of veins; D72.829 Elevated white blood cell count, unspecified; D59.6 Hemoglobinuria due to hemolysis from other external causes; D69.6 Thrombocytopenia, unspecified; F17.210 Nicotine dependence, cigarettes, uncomplicated; Z72.0 Tobacco use; Z68.31 Body mass index [BMI] 31.0-31.9, adult
CPT/HCPCS: 36415; 80053; 80306; 80307; 81001; 82550; 82553; 82728; 82803; 82962; 83036; 83540; 83550; 83605; 83735; 84145; 84439; 84443; 84484; 85025; 87040; 87086; 93005; 93010; 94640; 94660; 96360; 96361; 96366; 99285

== ENCOUNTER 2018-05-19 10:54 | Outpatient (CLI) | payer OTHER | END 2018-05-19 10:55 | disposition home or self-care (01) | LOC: AMBL 10:54 | PROVIDERS: ATTEND Emergency Medicine | DX: R41.82 Altered mental status, unspecified (principal); R06.03 Acute respiratory distress; I95.9 Hypotension, unspecified; E11.9 Type 2 diabetes mellitus without complications; Z86.73 Personal history of transient ischemic attack (TIA), and cerebral infarction without residual deficits ==